=== PATIENT | male | born 1960 | race Caucasian/White ===

== ENCOUNTER 2021-10-07 14:35 | Outpatient (REF) | payer OTHER, SELFPAY ==
[2021-10-07 19:35] LABS: Hemoglobin A1C 5.6 % (<5.7)
[2021-10-07 19:46] LABS: ALT 25 U/L (16-63); AST 22 U/L (15-37); Albumin 3.9 g/dL (3.4-5.0); Alkaline Phosphatase 90 U/L (46-116); Bilirubin, Total 0.3 mg/dL (0.2-1.0); Calculated LDL 104 mg/dL (<100); Cholesterol 178 mg/dL (<200); HDL Cholesterol 59 mg/dL (40-60); Total Protein 8.1 g/dL (6.4-8.2); Triglyceride 77 mg/dL (<150)
[2021-10-07 19:54] LABS: Bilirubin, Direct 0.1 mg/dL (0.0-0.2)
== END 2021-10-07 14:36 | disposition home or self-care (01) ==
LOC: NCHCN 14:35
PROVIDERS: PCP Physician Assistant; Visit Provider Nurse Practitioner Family
DX: I10 Essential (primary) hypertension (principal); F10.10 Alcohol abuse, uncomplicated
CPT/HCPCS: 80061; 80076; 83036

== ENCOUNTER 2022-11-16 19:13 | Outpatient (REF) | payer OTHER, SELFPAY ==
[2022-11-16 19:11] LABS: HCT 38.1 % (40.0-50.0); HGB 13.7 g/dL (13.5-17.5); MCH 33.5 pg (27.0-33.0); MCV 93 fL (80-95); MPV 9.2 fL (8.0-11.0); Platelet Count 304 10^3/uL (130-400); RBC 4.09 10^6/uL (4.36-5.78); RDW 12.2 % (11.8-14.1); RDW-SD 42.1 fL; WBC 9.62 10^3/uL (4.4-10.8)
[2022-11-16 19:30] LABS: AST 26 U/L (15-37); Alkaline Phosphatase 76 U/L (46-116); Anion Gap 9.7 mmol/L (3-11); BUN 9 mg/dL (7-18); Bilirubin, Total 0.5 mg/dL (0.2-1.0); CO2 26.3 mmol/L (21.0-32.0); CREATININE 1.1 mg/dL (0.70-1.30); Calcium 9.3 mg/dL (8.5-10.1); Chloride 94 mmol/L (98-107); Estimated GFR 75.43 (mL/min/1.73m2); Glucose 91 mg/dL (74-106); Potassium 4.2 mmol/L (3.5-5.1); Sodium 130 mmol/L (136-145); Total Protein 8.1 g/dL (6.4-8.2)
[2022-11-16 19:52] LABS: ALT 25 U/L (16-63)
== END 2022-11-16 19:14 | disposition home or self-care (01) ==
LOC: NCHCN 19:13
PROVIDERS: PCP Physician Assistant; Visit Provider Physician Assistant
DX: Z00.00 Encounter for general adult medical examination without abnormal findings (principal); I10 Essential (primary) hypertension; F10.10 Alcohol abuse, uncomplicated
CPT/HCPCS: 80053; 85027

== ENCOUNTER 2024-05-14 12:43 | Outpatient (REF) | payer MEDICAID, SELFPAY ==
[2024-05-14 21:59] LABS: Hemoglobin A1C 5.3 % (<5.7)
[2024-05-14 22:08] LABS: ALT 30 U/L (16-63); AST 27 U/L (15-37); Albumin 4.3 g/dL (3.4-5.0); Alkaline Phosphatase 98 U/L (46-116); Anion Gap 8.3 mmol/L (3-11); BUN 7 mg/dL (7-18); Bilirubin, Total 0.3 mg/dL (0.2-1.0); CO2 27.7 mmol/L (21.0-32.0); Calcium 9.5 mg/dL (8.5-10.1); Calculated LDL 100 mg/dL (<100); Chloride 102 mmol/L (98-107); Cholesterol 192 mg/dL (<200); Estimated GFR 84.05 (mL/min/1.73m2); Glucose 81 mg/dL (74-106); HDL Cholesterol 58 mg/dL (>or=40); Potassium 4.2 mmol/L (3.5-5.1); Sodium 138 mmol/L (136-145); Triglyceride 171 mg/dL (<150)
[2024-05-15 19:34] LABS: Hepatitis C Ab w Rflx HCV PCR Negative (Negative)
[2024-05-15 19:39] LABS: HIV-1/2 Ag & Ab Screen Negative (Negative)
== END 2024-05-14 12:44 | disposition home or self-care (01) ==
LOC: NCHCN 12:43
PROVIDERS: PCP Physician Assistant; Visit Provider Physician Assistant
DX: I10 Essential (primary) hypertension (principal); F10.10 Alcohol abuse, uncomplicated; Z11.4 Encounter for screening for human immunodeficiency virus [HIV]; Z11.59 Encounter for screening for other viral diseases
CPT/HCPCS: 80053; 80061; 86803; 87389; 83036

== ENCOUNTER → 2024-11-04 08:11 | Outpatient (BNVA) | payer MEDICARE, MEDICAID, SELFPAY | PROVIDERS: PCP Physician Assistant; Referring Provider Physician Assistant; Visit Provider Podiatrist | DX: L03.116 Cellulitis of left lower limb (principal); I87.2 Venous insufficiency (chronic) (peripheral); I73.89 Other specified peripheral vascular diseases; L60.2 Onychogryphosis; B35.1 Tinea unguium; Z72.0 Tobacco use; R25.2 Cramp and spasm; R09.89 Other specified symptoms and signs involving the circulatory and respiratory systems; R60.0 Localized edema; L53.8 Other specified erythematous conditions; L65.9 Nonscarring hair loss, unspecified; I83.93 Asymptomatic varicose veins of bilateral lower extremities; R23.8 Other skin changes; L60.8 Other nail disorders | CPT/HCPCS: 99204; 11721; 29580; 93922; 29850 ==

== ENCOUNTER 2024-11-04 11:55 | Outpatient (CLI) | payer MEDICARE, MEDICAID, SELFPAY ==
[2024-11-04 10:24] LABS: Abs Immature Grans 0.03 10^3/uL (0.0-0.06); HCT 44.7 % (40.0-50.0); HGB 15.3 g/dL (13.5-17.5); Immature Grans % 0.4 %; MCH 32.6 pg (27.0-33.0); MCHC 34.2 % (32.0-36.0); MCV 95 fL (80-95); MPV 9.2 fL (8.0-11.0); Platelet Count 303 10^3/uL (130-400); RBC 4.69 10^6/uL (4.36-5.78); RDW 12.7 % (11.8-14.1); RDW-SD 44.7 fL; WBC 8.22 10^3/uL (4.4-10.8)
== END 2024-11-04 11:56 | disposition home or self-care (01) ==
LOC: LBO 11:56
PROVIDERS: PCP Physician Assistant; Visit Provider Podiatrist
DX: L03.90 Cellulitis, unspecified (principal)
CPT/HCPCS: 11721; 29580; 36415; 93922; 29850; 85025

== ENCOUNTER → 2024-11-18 10:04 | Outpatient (BNVA) | payer MEDICARE, MEDICAID, SELFPAY | PROVIDERS: PCP Physician Assistant; Referring Provider Physician Assistant; Visit Provider Podiatrist | DX: L03.116 Cellulitis of left lower limb (principal); I87.2 Venous insufficiency (chronic) (peripheral); I73.89 Other specified peripheral vascular diseases; L60.2 Onychogryphosis; B35.1 Tinea unguium; Z72.0 Tobacco use | CPT/HCPCS: 29580; 29850 ==

== ENCOUNTER → 2024-12-02 10:33 | Outpatient (BNVA) | payer MEDICARE, MEDICAID, SELFPAY | PROVIDERS: PCP Physician Assistant; Referring Provider Physician Assistant; Visit Provider Podiatrist | DX: L03.115 Cellulitis of right lower limb (principal); L03.116 Cellulitis of left lower limb; B35.3 Tinea pedis; I77.6 Arteritis, unspecified; I87.2 Venous insufficiency (chronic) (peripheral); I73.89 Other specified peripheral vascular diseases; L60.2 Onychogryphosis; B35.1 Tinea unguium; Z72.0 Tobacco use | CPT/HCPCS: 99214; 29581 ==

== ENCOUNTER 2024-12-02 12:01 | Outpatient (CLI) | payer MEDICARE, SELFPAY ==
[2024-12-02 12:20] LABS: Abs Immature Grans 0.08 10^3/uL (0.0-0.06); HCT 44.6 % (40.0-50.0); HGB 15.3 g/dL (13.5-17.5); Immature Grans % 0.6 %; MCH 32.3 pg (27.0-33.0); MCHC 34.3 % (32.0-36.0); MCV 94 fL (80-95); MPV 9.1 fL (8.0-11.0); Platelet Count 337 10^3/uL (130-400); RBC 4.73 10^6/uL (4.36-5.78); RDW 12.5 % (11.8-14.1); RDW-SD 43.7 fL; WBC 12.99 10^3/uL (4.4-10.8)
[2024-12-02 12:59] LABS: ALT 23 U/L (16-63); AST 20 U/L (15-37); Albumin 3.7 g/dL (3.4-5.0); Alkaline Phosphatase 139 U/L (46-116); Bilirubin, Direct 0.1 mg/dL (0.0-0.2); Bilirubin, Total 0.4 mg/dL (0.2-1.0); Total Protein 7.7 g/dL (6.4-8.2)
[2024-12-02 13:20] LABS: ALT 22 U/L (16-63); AST 19 U/L (15-37); Albumin 3.8 g/dL (3.4-5.0); Alkaline Phosphatase 139 U/L (46-116); BUN 7 mg/dL (7-18); Bilirubin, Total 0.4 mg/dL (0.2-1.0); Calcium 8.7 mg/dL (8.5-10.1); Chloride 99 mmol/L (98-107); Estimated GFR 83.52 (mL/min/1.73m2); Glucose 101 mg/dL (74-106); Potassium 4.4 mmol/L (3.5-5.1); Sodium 135 mmol/L (136-145); Total Protein 7.7 g/dL (6.4-8.2)
[2024-12-02 13:26] LABS: Anion Gap 10.8 mmol/L (3-11); CO2 25.2 mmol/L (21.0-32.0)
== END 2024-12-02 12:02 | disposition home or self-care (01) ==
LOC: LBO 12:02
PROVIDERS: PCP Physician Assistant; Visit Provider Podiatrist
DX: L03.90 Cellulitis, unspecified (principal); B35.3 Tinea pedis; I77.6 Arteritis, unspecified; I87.2 Venous insufficiency (chronic) (peripheral)
CPT/HCPCS: 29581; 36415; 80053; 80076; 99214; 85025; 93971

== ENCOUNTER 2024-12-02 14:32 | Outpatient (REF) | payer MEDICARE, SELFPAY | END 2024-12-02 14:33 | disposition home or self-care (01) | LOC: LBN 14:32 | PROVIDERS: PCP Physician Assistant; Visit Provider Podiatrist | DX: L97.529 Non-pressure chronic ulcer of other part of left foot with unspecified severity (principal); L03.116 Cellulitis of left lower limb | CPT/HCPCS: 87077; 87070; 87075; 87186; 87205 ==

== ENCOUNTER 2024-12-04 08:59 | Outpatient (CLI) | payer MEDICARE, SELFPAY ==
[2024-12-04 09:34] LABS: ESR 12 mm/hr (0-20)
[2024-12-04 09:35] LABS: Abs Immature Grans 0.06 10^3/uL (0.0-0.06); HCT 41.9 % (40.0-50.0); HGB 14.7 g/dL (13.5-17.5); Immature Grans % 0.4 %; MCH 32.9 pg (27.0-33.0); MCHC 35.1 % (32.0-36.0); MCV 94 fL (80-95); MPV 9.1 fL (8.0-11.0); Platelet Count 303 10^3/uL (130-400); RBC 4.47 10^6/uL (4.36-5.78); RDW 12.4 % (11.8-14.1); RDW-SD 42.9 fL; WBC 14.88 10^3/uL (4.4-10.8)
[2024-12-04 10:09] LABS: C-Reactive Protein 12.18 mg/dL (<or=0.5)
[2024-12-05 17:26] LABS: Myeloperoxidase Ab IgG <0.2 U (>=0.4)
[2024-12-09 20:10] LABS: Cryoglobulin, S Negative %ppt (Negative)
== END 2024-12-04 09:00 | disposition home or self-care (01) ==
LOC: LBO 08:59
PROVIDERS: PCP Physician Assistant; Visit Provider Podiatrist
DX: I77.6 Arteritis, unspecified (principal); L03.90 Cellulitis, unspecified; I87.2 Venous insufficiency (chronic) (peripheral)
CPT/HCPCS: 11042; 11102; 36415; 85652; 99024; 99223; 99232; 99233; 82595; 83516; 85025; 86038; 86140; 86160; 86431

== ENCOUNTER 2024-12-04 10:23 | Inpatient (IN) | payer MEDICARE, SELFPAY ==
[2024-12-04] VITALS (48 sets, daily range): BP systolic 98–176; BP diastolic 56–82; PULSE 69–115; RESP 12–26; TEMP 36.2–37.3; O2SAT 90–100; BMI 27.5
[2024-12-04] MEDS: Lactated Ringers 1,000 ML 1000 ML IV (11:00)
[2024-12-04 11:17] LABS: Abs Immature Grans 0.10 10^3/uL (0.0-0.06); HCT 39.9 % (40.0-50.0); HGB 14.1 g/dL (13.5-17.5); Immature Grans % 0.6 %; MCH 32.5 pg (27.0-33.0); MCHC 35.3 % (32.0-36.0); MCV 92 fL (80-95); MPV 9.0 fL (8.0-11.0); Platelet Count 283 10^3/uL (130-400); RBC 4.34 10^6/uL (4.36-5.78); RDW 12.2 % (11.8-14.1); RDW-SD 41.2 fL; WBC 15.56 10^3/uL (4.4-10.8)
[2024-12-04 11:27] LABS: INR 1.0 (0.9-1.1); Prothrombin Time 10.0 sec (9.1-11.1)
--- NOTE | 2024-12-04 11:33 | W.ED.GENAD ---
Discharge Plan Disposition Patient Disposition: Admit to [facility] Condition: Fair Discharge Details Clinical Impression: Cellulitis of foot, left, PVD (peripheral vascular disease), Venous (peripheral) insufficiency Admit Date/Time: 12/04/24 15:02 Admit Provider: Wayne Kraft Attending Provider: Wayne Kraft Primary Care Provider: Treasure Ocampo ED Provider: Valerie Piper HPI General Mode of arrival: ambulatory. Date/Time Provider Initiated Documentation: 12/04/24 10:41. Limitations to Documentation: no limitations. Information obtained by: patient, family and old records reviewed. HPI Narrative: This is a 64-year-old male patient with a past medical history significant for peripheral vascular disease, hypertension, venous insufficiency, followed by podiatry for a left foot wound that has been worsening over the last 3 months and has been failing outpatient antibiotics for last few days. He is currently on Augmentin and Cipro to cover Pseudomonas and strep species that grew in his cultures. Podiatry saw him today and noticed worsening swelling and redness, with drainage of blood-tinged clear fluid, and dusky appearing spots on the bottom of his foot. He was sent to the emergency department for further evaluation. The patient reports that he has been taking all medications as prescribed, last oral intake 8 PM, states that the foot is slightly painful but not worse than typical. He reports that he has had night sweats and subjective fevers, has been eating and drinking typically for him. He uses Aleve to manage his pain typically. Related Data Home Medications ?Medication ?Instructions ?Recorded ?Confirmed ibuprofen 800 mg tablet 800 mg PO Q8H 10/31/24 12/04/24 amlodipine 10 mg tablet 10 mg PO DAILY 11/04/24 12/04/24 aspirin 81 mg tablet 81 mg PO DAILY 11/04/24 12/04/24 ketoconazole 2 % topical cream See Rx Instructions topical DAILY 11/04/24 12/04/24 #30 grams lisinopril 40 mg tablet 40 mg PO DAILY 11/04/24 12/04/24 omega 1-mnp-dlq-fish oil 60 mg-90 1 cap PO DAILY 11/04/24 12/04/24 mg-500 mg capsule (Fish Oil) amoxicillin 500 mg-potassium 1 tab PO BID 7 days #14 tabs 12/02/24 12/04/24 clavulanate 125 mg tablet (Augmentin) ciprofloxacin HCl 500 mg tablet 500 mg PO BID #14 tabs 12/02/24 12/04/24 terbinafine HCl 250 mg tablet 250 mg PO DAILY 30 days #30 tabs 12/02/24 12/04/24 sodium hypochlorite 0.125 % 1 applic topical DAILY #473 mL 12/03/24 12/04/24 solution (Dakin's Solution) mv,Ca,wxa-ansr-WJ-lycopene 1 tab PO DAILY 12/04/24 12/04/24 Previous Rx's ?Medication ?Instructions ?Recorded ketoconazole 2 % topical cream See Rx Instructions topical DAILY 11/04/24 #30 grams amoxicillin 500 mg-potassium 1 tab PO BID 7 days #14 tabs 12/02/24 clavulanate 125 mg tablet (Augmentin) ciprofloxacin HCl 500 mg tablet 500 mg PO BID #14 tabs 12/02/24 terbinafine HCl 250 mg tablet 250 mg PO DAILY 30 days #30 tabs 12/02/24 sodium hypochlorite 0.125 % 1 applic topical DAILY #473 mL 12/03/24 solution (Dakin's Solution) Allergies Allergy/AdvReac Type Severity Reaction Status Date / Time No Known Allergies Allergy Verified 12/04/24 10:33 General Stated Complaint: Vascular DARCY: 3 Exam Narrative Exam Narrative: Gen: Awake and alert, in no apparent distress HEENT: Non-icteric sclera Neck: Supple Lungs: No apparent respiratory distress, normal respiratory effort. CV: Appears well perfused, heart with regular rate and rhythm, strong distal pulses Abdomen: Non-distended, soft MSK: Moves 4 extremities without apparent limitation in ROM. The patient's left lower extremity as noted below is significantly erythematous, swollen and tender with disclamation of the skin. He does have some dusky appearing areas on the medial/inferior aspect of the foot. He has strong DP pulses compared to the contralateral foot, with preserved movement and sensation distally. Skin: The patient's left flank has an area of red scaly rashes, macular, with no vesicles or petechiae. The patient reports that this has been present since July. Neuro: Normal Gait, no obvious focal deficits or facial asymmetry. Speaks in full, clear sentences. Psych: Appropriate for situation. Course Vital Signs Vital signs: Vital Signs Temperature 37.3 C 12/04/24 10:26 Pulse 110 H 12/04/24 10:26 Respiratory Rate 20 12/04/24 10:26 Blood Pressure 150/72 H 12/04/24 10:26 Pulse Oximetry 98 12/04/24 10:26 Temperature 37.3 C 12/04/24 10:26 Pulse 110 H 12/04/24 10:26 Respiratory Rate 20 12/04/24 10:26 Blood Pressure 150/72 H 12/04/24 10:26 Blood Pressure Position Sitting 12/04/24 10:26 Pulse Oximetry 98 12/04/24 10:26 Oxygen Delivery Method Room Air 12/04/24 10: Oxygen Flow Rate 0 12/04/24 10: Pain Level 4 12/04/24 10:26 Lab/Test Results Lab/Test Results: 12/04/24 11:15 Blood Blood Culture - Pending 12/04/24 11:03 Blood Blood Culture - Pending Laboratory Tests Range/Units 12/04/24 11:03 WBC (4.4-10.8) 10^3/uL 15.56 H RBC (4.36-5.78) 10^6/uL 4.34 L Hgb (13.5-17.5) g/dL 14.1 Hct (40.0-50.0) % 39.9 L MCV (80-95) fL 92 MCH (27.0-33.0) pg 32.5 MCHC (32.0-36.0) % 35.3 RDW (11.8-14.1) % 12.2 Plt Count (130-400) 10^3/uL 283 MPV (8.0-11.0) fL 9.0 Immature Gran % % 0.6 Neutrophils % % 85.7 Lymphocytes % % 4.3 Monocytes % % 8.3 Eosinophils % % 0.5 Basophils % % 0.6 Nucleated RBC % (0.0-0.3) % 0.0 Absolute Neutrophils (1.2-6.7) 10^3/uL 13.33 H Absolute Lymphocytes (1.2-3.4) 10^3/uL 0.67 L Absolute Monocytes (0.1-0.8) 10^3/uL 1.29 H Absolute Eosinophils (0.0-0.7) 10^3/uL 0.08 Absolute Basophils (0.0-0.2) 10^3/uL 0.09 VBG Lactate (<or=2.0) mmol/L 1.3 Medical Decision Making This is a 64-year-old male patient presenting for evaluation of nonhealing left foot infection that has not responded appropriately to outpatient antibiosis. My differential includes but is not limited to cellulitis, abscess, osteomyelitis, certainly considered vascular abnormality including peripheral vascular disease, though have a low concern for arterial occlusion given this patient's preserved pulses and reassuring neurologic examination. I do not note any whole leg swelling to suggest phlegmasia and the patient did have a negative DVT ultrasound within the last few days. I considered sepsis and bacteremia given the patient's tachycardia and obvious source. Will obtain labs to include CBC, CMP, magnesium, troponin, lactate, INR, and I will obtain a CT abdomen pelvis with runoff. - I reviewed the patient laboratory studies, which shows a leukocytosis to 15.5, no anemia or thrombocytopenia. Chemistry panel without significant electrolyte derangements, evidence of kidney or liver dysfunction, and the initial troponin is negative. His lactate is not significantly elevated, nor is his INR. Given the tachycardia and leukocytosis the patient was provided with a liter of IV fluids, and will receive Zosyn as initial antibiosis. I did receive a phone call from the art consultant while the patient was in the emergency department, stating that she would like to take the patient to OR for incision and drainage. The vascular imaging and vascular surgery consult will therefore be done as an inpatient. I did discuss this case with Dr. Kraft with the hospitalist team, who has graciously accepted this patient for admission after the OR for further workup and management of his wound. The patient was taken from the ED to the operating room, remained hemodynamically appropriate while under my care. 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 Pulmonary emphysema (Acute) declines PFTs Harmful pattern of use of alcohol (Acute) PVD (peripheral vascular disease) (Chronic) Hypertension (Chronic) Onychomycosis (Acute) Onychogryphosis (Acute) Other specified peripheral vascular diseases (Acute) Venous (peripheral) insufficiency (Acute) Stasis dermatitis (Acute) Cellulitis (Acute) Tobacco user (Acute) Medical History Toe fracture, right 1st digit Social History Smoking/Tobacco Use Status: Current every day Tobacco Type: cigarettes Smoking packs per day: 1 Smoking cigarettes per day: 20.0 Tobacco: How many years used: 45 Smoking risk assessment performed?: Yes Alcohol Intake: current Drug use: Never
[2024-12-04] MEDS: PIPERACILLIN/TAZO 4.5 GM in Normal Saline 100 ML IVPB ×3 (11:34→22:46)
[2024-12-04 11:36] LABS: ALT 22 U/L (16-63); AST 18 U/L (15-37); Albumin 3.5 g/dL (3.4-5.0); Alkaline Phosphatase 127 U/L (46-116); Anion Gap 11.7 mmol/L (3-11); BUN 8 mg/dL (7-18); Bilirubin, Total 0.6 mg/dL (0.2-1.0); CO2 24.3 mmol/L (21.0-32.0); Calcium 8.5 mg/dL (8.5-10.1); Chloride 96 mmol/L (98-107); Estimated GFR 83.52 (mL/min/1.73m2); Glucose 116 mg/dL (74-106); Magnesium 1.9 mg/dL (1.8-2.4); Potassium 4.3 mmol/L (3.5-5.1); Sodium 132 mmol/L (136-145); Total Protein 7.3 g/dL (6.4-8.2); Troponin I 6 ng/L (<or=76)
--- NOTE | 2024-12-04 12:02 | W.PM.HP.N ---
Date of service: 12/04/24 Time of Service: 12:00 Assessment and Plan Assessment and plan (1) Cellulitis of foot, left: Status: Acute Assessment and plan: Likely secondary to longstanding fungal infection affecting all 10 toes To OR with Dr Steiner this afternoon for debridement Antibiotics changed to vanc & zosyn Monitor CBC (2) PVD (peripheral vascular disease): Status: Chronic Assessment and plan: Aortic runoff CT planned for post-op Likely to need [facility] vascular surgery consult Dr Steiner will advise on intraoperative blood flow to the foot (3) Hypertension: Status: Chronic Assessment and plan: Continue home ACEI, hold home CCB History of Present Illness History of Present Illness Chief Complaint: left foot wounds Narrative: Rk Barlow is a 64 year old man presenting December 04, sent in from podiatry clinic for worsening left foot/ankle wounds, anticipating OR debridement. He failed multiple courses of antibiotics. History taken from the medical record as patient is in the OR. Per the record he has had the foot wounds for 3 months, with intermittent swelling and redness. At December 02 clinic visit he had purulent drainage and a rash all over his body. US VTE negative for thrombus. At December 04 clinic visit, lower leg symptoms had improved but ankle/foot wounds had worsened with increasing purulent drainage. 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 Pulmonary emphysema (Acute) declines PFTs Harmful pattern of use of alcohol (Acute) PVD (peripheral vascular disease) (Chronic) Hypertension (Chronic) Onychomycosis (Acute) Onychogryphosis (Acute) Other specified peripheral vascular diseases (Acute) Venous (peripheral) insufficiency (Acute) Stasis dermatitis (Acute) Cellulitis (Acute) Tobacco user (Acute) Medical History Toe fracture, right 1st digit Social History Smoking/Tobacco Use Status: Current every day Tobacco Type: cigarettes Smoking packs per day: 1 Smoking cigarettes per day: 20.0 Tobacco: How many years used: 45 Smoking risk assessment performed?: Yes Alcohol Intake: current Drug use: Never Housing: house Meds Allergies and Home Medications Allergies Allergy/AdvReac Type Severity Reaction Status Date / Time No Known Allergies Allergy Verified 12/04/24 10:33 Home Medications ?Medication ?Instructions ?Recorded ?Confirmed ?Type ibuprofen 800 mg tablet 800 mg PO Q8H 10/31/24 12/04/24 History amlodipine 10 mg tablet 10 mg PO DAILY 11/04/24 12/04/24 History aspirin 81 mg tablet 81 mg PO DAILY 11/04/24 12/04/24 History ketoconazole 2 % topical cream See Rx Instructions topical DAILY 11/04/24 12/04/24 Rx #30 grams lisinopril 40 mg tablet 40 mg PO DAILY 11/04/24 12/04/24 History omega 4-qds-yiy-fish oil 60 mg-90 1 cap PO DAILY 11/04/24 12/04/24 History mg-500 mg capsule (Fish Oil) amoxicillin 500 mg-potassium 1 tab PO BID 7 days #14 tabs 12/02/24 12/04/24 Rx clavulanate 125 mg tablet (Augmentin) ciprofloxacin HCl 500 mg tablet 500 mg PO BID #14 tabs 12/02/24 12/04/24 Rx terbinafine HCl 250 mg tablet 250 mg PO DAILY 30 days #30 tabs 12/02/24 12/04/24 Rx sodium hypochlorite 0.125 % 1 applic topical DAILY #473 mL 12/03/24 12/04/24 Rx solution (Dakin's Solution) mv,Ca,dlp-kpzj-SE-lycopene 1 tab PO DAILY 12/04/24 12/04/24 History Exam Narrative Exam Narrative: General: This is a pleasant man in no distress HEENT: Normocephalic, atraumatic CV: RRR Resp: CTAB Abd: soft, NTND MSK: voluntary motion x4 Skin: Left ankles and foot erythematous and edematous with weeping wounds. BLE rash. Severe nail fungus in all 10 toes. Neuro: awake, alert, no focal deficits Results Labs 12/04/24 11:03 12/04/24 11:03 Labs: Laboratory Results - last 24 hr 12/04/24 11:03 WBC 15.56 H RBC 4.34 L Hgb 14.1 Hct 39.9 L MCV 92 MCH 32.5 MCHC 35.3 RDW 12.2 Plt Count 283 MPV 9.0 Immature Gran % 0.6 Neutrophils % 85.7 Lymphocytes % 4.3 Monocytes % 8.3 Eosinophils % 0.5 Basophils % 0.6 Nucleated RBC % 0.0 Absolute Neutrophils 13.33 H Absolute Lymphocytes 0.67 L Absolute Monocytes 1.29 H Absolute Eosinophils 0.08 Absolute Basophils 0.09 PT 10.0 INR 1.0 VBG Lactate 1.3 Sodium 132 L Potassium 4.3 Chloride 96 L Carbon Dioxide 24.3 Anion Gap 11.7 H BUN 8 Creatinine 1.0 Est GFR (CKD-EPI 2020) 83.52 Glucose 116 H Calcium 8.5 Magnesium 1.9 Total Bilirubin 0.6 AST 18 ALT 22 Alkaline Phosphatase 127 H Troponin I 6 Total Protein 7.3 Albumin 3.5 Last Vital Signs Temp 37.3 C 12/04/24 10:26 Pulse 110 H 12/04/24 10:26 Resp 20 12/04/24 10:26 BP 150/72 H 12/04/24 10:26 Pulse Ox 98 12/04/24 10:26 Time Spent Time spent with Patient: 40-54 minutes Time was spent: preparing to see the patient(eg.review tests), obtaining and/or reviewing separately otained hiistory, ordering medications,tests, procedures, referring, communicating with other health palliative care nurse, indepentently interpreting results, counseling the patient and care coordination
--- NOTE | 2024-12-04 12:26 | W.ANESPRE ---
General Info Date of Service Date Performed: 12/04/24 Height: 6 ft 3 in Weight: 99.79 kg Body Mass Index (BMI): 27.5 Surgical Procedure: Operation Date: 12/04/24 13:10 Proposed Procedure Side Surgeon p I&D Foot Left Moon Murrell DPM Meds Allergies and Home Medications Allergies Allergy/AdvReac Type Severity Reaction Status Date / Time No Known Allergies Allergy Verified 12/04/24 10:33 Home Medication ?Medication ?Instructions ?Recorded ibuprofen 800 mg tablet 800 mg PO Q8H 10/31/24 amlodipine 10 mg tablet 10 mg PO DAILY 11/04/24 aspirin 81 mg tablet 81 mg PO DAILY 11/04/24 ketoconazole 2 % topical cream See Rx Instructions topical DAILY 11/04/24 #30 grams lisinopril 40 mg tablet 40 mg PO DAILY 11/04/24 omega 7-swh-dcv-fish oil 60 mg-90 1 cap PO DAILY 11/04/24 mg-500 mg capsule (Fish Oil) amoxicillin 500 mg-potassium 1 tab PO BID 7 days #14 tabs 12/02/24 clavulanate 125 mg tablet (Augmentin) ciprofloxacin HCl 500 mg tablet 500 mg PO BID #14 tabs 12/02/24 terbinafine HCl 250 mg tablet 250 mg PO DAILY 30 days #30 tabs 12/02/24 sodium hypochlorite 0.125 % 1 applic topical DAILY #473 mL 12/03/24 solution (Dakin's Solution) mv,Ca,kur-ikbi-GZ-lycopene 1 tab PO DAILY 12/04/24 Current Visit Medications: Current Medications Generic Name Dose Route Start Last Admin Trade Name Emory PRN Reason Stop Dose Admin Amlodipine Besylate 10 mg 12/05/24 08:30 Amlodipine 10 Mg Tab PO DAILY [facility] Aspirin 81 mg 12/05/24 08:30 Aspirin 81 Mg Chew PO DAILY [facility] Fish Oil 1,000 mg 12/05/24 08:30 Seneca-3 Fatty Acids 1000 Mg Cap PO DAILY [facility] Piperacillin Sod/Tazobactam 100 mls @ 200 mls/hr 12/04/24 17:00 Sod 4.5 gm/ Sodium Chloride IVPB Q6H [facility] Vancomycin/PEG/NADA/Lysine/Water 2 gm in 400 mls @ 200 mls/hr 12/04/24 12:30 Vancocin Injection IVPB 12/04/24 14:29 NOW ONE Vancomycin/PEG/NADA/Lysine/Water 1 gm in 200 mls @ 133.333 mls/hr 12/05/24 02:00 Vancocin Injection IVPB Q12H [facility] IV Miscellaneous Supplies 1 each 12/04/24 10:45 Iv Access IV DIRECTED [facility] IV Miscellaneous Supplies 1 each 12/04/24 12:00 Iv Access IV DIRECTED [facility] Lisinopril 40 mg 12/05/24 08:30 Lisinopril 10 Mg Tab PO DAILY [facility] Non-Formulary Medication 1 tab 12/05/24 08:30 Mv,Ca,Poz-Clqm-Wt-Lycopene PO DAILY [facility] Polyethylene Glycol 17 gm 12/04/24 11:52 Polyethylene Glycol 3350 17 Gm Packet PO DAILY PRN PRN Constipation Sodium Chloride 0 ml 12/04/24 10:42 Normal Saline Flush 10 Ml Syr IVP PRN PRN Sodium Chloride 0 ml 12/04/24 20:00 Normal Saline Flush 10 Ml Syr IVP BID [facility] Sodium Chloride 0 ml 12/04/24 10:42 Normal Saline 10 Ml Vial IJ DIRECTED PRN Sodium Chloride 0 ml 12/04/24 11:52 Normal Saline Flush 10 Ml Syr IVP PRN PRN Sodium Chloride 0 ml 12/04/24 20:00 Normal Saline Flush 10 Ml Syr IVP BID [facility] Sodium Chloride 0 ml 12/04/24 11:52 Normal Saline 10 Ml Vial IJ DIRECTED PRN PFSH Active Problems Active Problems: Problem Status Onset Code Vasculitis Acute I77.6 Tinea pedis Acute B35.3 Coronary arteriosclerosis Acute I25.10 Hyponatremia Acute E87.1 Mass of right adrenal gland Acute E27.8 Pulmonary emphysema Acute J43.9 Harmful pattern of use of alcohol Acute F10.10 PVD (peripheral vascular disease) Chronic I73.9 Hypertension Chronic I10 Onychomycosis Acute B35.1 Onychogryphosis Acute L60.2 Other specified peripheral vascular diseases Acute I73.89 Venous (peripheral) insufficiency Acute I87.2 Stasis dermatitis Acute I87.2 Cellulitis Acute L03.90 Tobacco user Acute Z72.0 Medical History Medical History Toe fracture, right 1st digit Tobacco Smoking/Tobacco Use Status: Current every day Tobacco Type: cigarettes Smoking packs per day: 1 Smoking cigarettes per day: 20.0 Alcohol Alcohol Intake: current Substance Use Substance use: Never Vital Signs and Lab Results Vital Signs Most Recent Vital Signs in EMR: Most Recent Vital Signs Temp Pulse Resp BP Pulse Ox 37.3 C 110 H 20 150/72 H 98 12/04/24 10:26 12/04/24 10:26 12/04/24 10:26 12/04/24 10:12/04/24 10: Lab Results 12/04/24 11:12/04/24 11:03 Complete Blood Count: WBC, (4.4-10.8) 15.56 10^3/uL H Today, 11:03 RBC, (4.36-5.78) 4.34 10^6/uL L Today, 11:03 Hgb, (13.5-17.5) 14.1 g/dL Today, 11:03 Hct, (40.0-50.0) 39.9 % L Today, 11:03 Plt Count, (130-400) 283 10^3/uL Today, 11:03 VBG Lactate, (<or=2.0) 1.3 mmol/L Today, 11:03 Complete Metabolic Panel: Sodium, (136-145) 132 mmol/L L Today, 11:03 Potassium, (3.5-5.1) 4.3 mmol/L Today, 11:03 Chloride, (98-107) 96 mmol/L L Today, 11:03 Carbon Dioxide, (21.0-32.0) 24.3 mmol/L Today, 11:03 BUN, (7-18) 8 mg/dL Today, 11:03 Creatinine, (0.70-1.30) 1.0 mg/dL Today, 11:03 Est GFR (CKD-EPI 2020), (mL/min/1.73m2) 83.52 Today, 11:03 Magnesium, (1.8-2.4) 1.9 mg/dL Today, 11:03 Calcium, (8.5-10.1) 8.5 mg/dL Today, 11:03 Albumin, (3.4-5.0) 3.5 g/dL Today, 11:03 Glucose, (74-106) 116 mg/dL H Today, 11:03 C-Reactive Protein, (<or=0.5) 12.18 mg/dL H Today, 09:15 Liver Function Panel: ALT, (16-63) 22 U/L Today, 11:03 AST, (15-37) 18 U/L Today, 11:03 Coagulation Panel: INR, (0.9-1.1) 1.0 Today, 11:03 PT, (9.1-11.1) 10.0 sec Today, 11:03 Cardiac Panel: Troponin I, (<or=76) 6 ng/L Today Anesthesia Assessment and Plan Anesthesia History Personal History: No History of Anesthesia Complications Family History: No Family History of Anesthesia Complications Exercise Tolerance Exercise Tolerance: Metabolic Equivalents>4 Pertinent Negatives Pertinent Negatives: No Symptoms of GERD Cardiac & Pulmonary Exam Cardiac Exam: Normal S1/S2 Heart Sounds Pulmonary Exam: Clear Bilateral Breath Sounds Implantable Cardiac Device Does patient have a Pacemaker or an ICD?: No Airway Exam Known Difficult Airway: No Mallampati Class: 2 Mouth Opening: Normal (> 3cm) Thyromental Distance: Greater than 3 cm Facial Hair: Full Ordonez Neck Range of Motion: Full ROM Neck Circumference: Normal Teeth Condition: Generalized Poor Dentition ASA Classification ASA Score: ASA 2 Emergency Case?: No NPO Status NPO Status: NPO Clears >2 hours, Solids >8 hours (3 drops of milk in coffee at 0930) Anesthesia Plan Resuscitation Status: Full Code Anesthesia Technique: General Anesthesia Airway Planned: Natural Airway Monitors Used: Standard Monitors Preoperative Comments:: Pt. denies any knowledge of adrenal mass or CAD, no current cardiac symptoms.
[2024-12-04] MEDS: HYDROmorphone 2 MG/ML SYR 0.5 MG IVP (12:58)
[2024-12-04] MEDS: Lactated Ringers 1,000 ML 30 ML IV (13:34)
[2024-12-04 13:47] LABS: Vancomycin, Random < 0.8 ug/mL
[2024-12-04 13:50] LABS: Troponin I 6 ng/L (<or=76)
[2024-12-04] MEDS: VANCOMYCIN/WATER (PEG) 2 GM/400 ML BAG IVPB (14:04)
--- NOTE | 2024-12-04 14:28 | SKI_PTH ---
PATIENT: Rk Barlow JR LOC: U#:[id number] AGE/SX: 64/M ROOM: 228 RE12/04/[address]: Wayne Kraft : 1960 BED: A DIS: 12/09/2024 SPEC #: [id number] RECD: 12/04/24 18:08 STATUS: ALLEGRA REShoaib #: [id number] DENISE: 12/04/24 14:[address]: Wayne Kraft DEPT: Surgical Specimen RECD BY: Alba Narvaez ENTERED: 12/04/24 18:10 SP TYPE: DARLYN GREENBERG DR: Manuel Cueva Kelsey Sara Zaidi, DPM [facility] Tissues: 1 - SKIN BIOPSY(SHAVE/PUNCH) 2 - SKIN BIOPSY(SHAVE/PUNCH) Procedures: SKIN LEVEL 4 SPECIAL STAIN 1 Comments: [id number]
[2024-12-04] MEDS: Cellulose,Oxidized 4X8 1 PACKET MC (14:32)
--- NOTE | 2024-12-04 14:43 | PDOC.CMIN ---
Date of service: 12/05/24 Time of Service: 09:50 Care Management Initial Assmt Initial Assessment Reason for Hospitalization: cellulitis of left foot requiring surgical intervention Functional Status/Living Situation Patient Presentation: Rk was seen by podiatry yesterday for a left foot wound that has been worsening and he was sent to the ED. He had been on antibiotics, but still the infection worsened. He was taken to the OR for I&D. Bill was lying in bed when CM met with him. He slept late into the day. He immediately sat up to speak with CM, and was very pleasant. 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 Bill is having a fair amount of pain to that left foot, but he stated that it is handled pretty well by Tylenol alternating with tramadol. He will be returning to the OR on 12/08 for closure of that wound. For now, Bill is non-wieght bearing on his left foot. He is using a walker and hopping around. He is unsure how that would work at home, as the house is 2 stories. He can sleep on the first floor couch, but not the best for comfort. Bill would be willing to go to SNF if needed, but he would much prefer to go home. No referrals will be sent today, he prefers to wait until after the surgery for wound closure. Bill stated that Rosibel has been doing his dressing changes, and she would continue to do so if needed. He would be open to if needed as well. Town of Residence: [place] Resides with: Other (partner, Rosibel) Significant Other/Family: Local (2 daughters, only in touch with one) Natural Supports: Rosibel Employment Status: Retired Instrumental Activities of Daily Living (ADLs): Independent Medications Medication Management: No Issues/Barriers identified Physical Functioning/Mobility Assistive Device: FWW Advance Directives Advance Directives: Do you have an Advance Directive: N 02/15/16, 11:53 AD On File at [facility]: N 02/15/16, 11:53 Date Asked 12/04/24 12/04/24, 10:39 AD Date Reviewed COLST On File at [facility] COLST Date Scanned Code Status Resuscitation Status Full Code Insurance Coverage/Financial Issues Insurance: Medicare Part A & B Care Team Visit Care Team Role Provider Type Treasure Ocampo Primary Care Provider NON-[facility] STAFF PHYSICIAN InPatient Jason Desouza Other Providers OTHER Manuel Cueva DPM Other Providers [facility] STAFF PHYSICIAN Valerie Piper MD Emergency Provider [facility] STAFF PHYSICIAN Moon Murrell DPM Attending Provider PIYUSH [facility] STAFF PHYSICIAN Other Providers Discharge Potential Discharge Needs: PT Evaluation, PCP F/U Appt and Surgical F/U Appt (podiatry) Anticipated Barriers to Discharge: None Identified Patient/Family Education Needs: Review discharge instructions, discuss Ask Me Three Transportation: Private vehicle Plan: Bill will likely discharge home once he is medically stable. He may need HH for wound care. 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 Bill will transport home in a private vehicle. CM will continue to follow and update the plan as needed. 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 Pulmonary emphysema (Acute) declines PFTs Harmful pattern of use of alcohol (Acute) PVD (peripheral vascular disease) (Chronic) Hypertension (Chronic) Onychomycosis (Acute) Onychogryphosis (Acute) Other specified peripheral vascular diseases (Acute) Venous (peripheral) insufficiency (Acute) Stasis dermatitis (Acute) Cellulitis (Acute) Tobacco user (Acute) Medical History Toe fracture, right 1st digit Social History Smoking/Tobacco Use Status: Current every day Tobacco Type: cigarettes Smoking packs per day: 1 Smoking cigarettes per day: 20.0 Tobacco: How many years used: 45 Smoking risk assessment performed?: Yes Alcohol Intake: current Drug use: Never Housing: house
[2024-12-04] MEDS: fentaNYL 100 MCG/2 ML VIAL IVP ×2 (15:22→15:28)
--- NOTE | 2024-12-04 16:05 | W.ANESPOSTOP ---
Postoperative Evaluation Date, Time and Location Date Performed: 12/04/24 Time Performed: 15:27 Patient Location: PACU Vital Signs Most Recent Imported Vital Signs: Most Recent Vital Signs Temp Pulse Resp BP Pulse Ox 37.0 C 78 15 118/82 97 12/04/24 15:27 12/04/24 15:27 12/04/24 15:27 12/04/24 15:27 12/04/24 15:27 Pain Score Most Recent Pain Score: Most Recent Pain Score Pain Level 4 12/04/24 15:27 Assessment Mental Status: Awake (Alert & Oriented to Patient Baseline) Airway and Respiratory Function: Patent airway with normal (patient baseline) respiratory exam Cardiovascular Function: Hemodynamically Stable Hydration Status: Adequately Hydrated Nausea & Vomiting: No Nausea or Vomiting Pain: Pain is tolerable per patient Peripheral Nerve Block: Patient did not receive a nerve block
--- NOTE | 2024-12-04 16:18 | POCOE_ITS ---
Date of service: 12/04/24 Time of Service: 13:30 Assessment and Plan Assessment and plan (1) Cellulitis of foot, left: Status: Acute (2) Vasculitis: Status: Acute (3) Tinea pedis: Status: Acute (4) PVD (peripheral vascular disease): Status: Chronic (5) Venous (peripheral) insufficiency: Status: Acute (6) Stasis dermatitis: Status: Acute (7) Cellulitis: Status: Acute Assessment and plan: Patient was seen in preop holding. I recommended OR incision and debridement of the left foot and ankle for exploratory and treatment purposes since hide has failed multiple rounds of antibiotics, compression therapy. Cultures were reviewed. Patient has been on antibiotics and we will continue. Patient consented to the procedure. I discussed all the risks, benefits and possible complications of the procedure in detail with the patient including but not limited to pain, nerve pain, CRPS, bleeding, hematoma, seroma, delayed healing, nonhealing, need for further surgery or amputation, DVT, PE, stroke, MT or with anesthesia. Patient has been n.p.o. with his last meal being 8 PM last night. No contraindications to the procedure. History of Present Illness Narrative: Patient consulted for left lower extremity cellulitis. Patient is familiar to our practice. He has been under care with podiatry at an [facility] since 11/04/2024. Patient has initially presented with left lower extremity cellulitis and small wounds which she had taken antibiotics for. He stated that these foot wounds have been present for about 3 months now with off-and-on swelling and redness. He was seen in clinic with redness, swelling, small shallow wounds to the left lower extremity. He was seen in clinic on 12/02/2024 with worsening redness, swelling, heavy green drainage from the wounds as well as a rash extending to bilateral lower extremity as well as his upper body. Labs were ordered taken and reviewed. DVT duplex was reviewed and negative for for DVT at that time. Patient was prescribed ciprofloxacin and Augmentin however, upon follow-up today in office there was noted to be less erythema, edema to the left calf however increase in redness swelling drainage from the left foot. Patient was sent to the ER for admit and emergent OR I&D for hemorrhagic tissue noted to the plantar foot. 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 Pulmonary emphysema (Acute) declines PFTs Harmful pattern of use of alcohol (Acute) PVD (peripheral vascular disease) (Chronic) Hypertension (Chronic) Onychomycosis (Acute) Onychogryphosis (Acute) Other specified peripheral vascular diseases (Acute) Venous (peripheral) insufficiency (Acute) Stasis dermatitis (Acute) Cellulitis (Acute) Tobacco user (Acute) Medical History Toe fracture, right 1st digit Social History Smoking/Tobacco Use Status: Current every day Tobacco Type: cigarettes Smoking packs per day: 1 Smoking cigarettes per day: 20.0 Tobacco: How many years used: 45 Smoking risk assessment performed?: Yes Alcohol Intake: current Drug use: Never Exam Extrem Other: Vascular: DP to the left is palpable 1/4, remainder of the pulses are nonpalpable bilaterally.. There is edema noted bilaterally left foot worse than right. Skin changes consistent with venous insufficiency bilaterally left worse than right. Venous ulcers to the left lower extremity. Decreased erythema, edema and warmth to the left lower extremity. Capillary fill time is delayed to distal digits bilaterally. Skin temperature is warm to warm bilateral lower extremity. Varicosities and telangiectasias noted bilaterally. Hair growth absent bilaterally. MSK: Muscle strength is within normal limits and symmetrical to bilateral lower extremity. Ankle alignment is normal and ROM is normal and pain-free. Subtalar joint ROM is normal. Mid-tarsal joint ROM is normal. Metatarsophalangeal joint ROM is normal and pain free bilaterally. Hallux in good alignment and pain-free bilateral. The digits of b/l feet are in normal alignment. There is no pain on palpation to b/l heels. There is normal gait noted Derm: Erythema, edema, warmth noted to the left lower extremity noted to be resolving to the calf. Shallow venous ulcers noted to medial and lateral ankle to the left. Increased erythema, edema, warmth, drainage to the left foot today, there is some hemorrhagic thrombotic tissue noted to the plantar medial surface laterally, severe interdigital maceration noted to the left toes, serous/green drainage noted, no crepitus no bogginess no fluctuance, there is malodor noted Rash noted bilaterally, left lower extremity worse and more coalescent than right appears improved to the left. Nails x 10 are severely elongated, gryphotic, thickened, discolored, with heavy subungual debris and pain, nails are growing in an upward fashion at around a 60 to 70 degree angle. No open venous ulcers at this time. Results Last Vital Signs Temp 98.6 F 12/04/24 15:27 Pulse 78 12/04/24 15:27 Resp 15 12/04/24 15:27 BP 118/82 12/04/24 15:27 Pulse Ox 97 12/04/24 15:27 Labs 12/04/24 11:03 12/04/24 11:03 Labs: Laboratory Results - last 24 hr 12/04/24 12/04/24 11:03 13:27 WBC 15.56 H RBC 4.34 L Hgb 14.1 Hct 39.9 L MCV 92 MCH 32.5 MCHC 35.3 RDW 12.2 Plt Count 283 MPV 9.0 Immature Gran % 0.6 Neutrophils % 85.7 Lymphocytes % 4.3 Monocytes % 8.3 Eosinophils % 0.5 Basophils % 0.6 Nucleated RBC % 0.0 Absolute Neutrophils 13.33 H Absolute Lymphocytes 0.67 L Absolute Monocytes 1.29 H Absolute Eosinophils 0.08 Absolute Basophils 0.09 PT 10.0 INR 1.0 VBG Lactate 1.3 Sodium 132 L Potassium 4.3 Chloride 96 L Carbon Dioxide 24.3 Anion Gap 11.7 H BUN 8 Creatinine 1.0 Est GFR (CKD-EPI 2020) 83.52 Glucose 116 H Calcium 8.5 Magnesium 1.9 Total Bilirubin 0.6 AST 18 ALT 22 Alkaline Phosphatase 127 H Troponin I 6 6 Total Protein 7.3 Albumin 3.5 Random Vancomycin < 0.8
--- NOTE | 2024-12-04 16:25 | W.PM.OP ---
Operative Note Operative Note PRE-OP DIAGNOSIS: Cellulitis/abscess, left foot and ankle POST-OP DIAGNOSIS: other (Cellulitis left ankle) PROCEDURE: Incision and debridement left foot and ankle ulcers SURGEON: Moon Mrurell ANESTHESIA TYPE: Local By Surgeon (8 mL 1% lidocaine plain) Refer to Anesthesia Record ESTIMATED BLOOD LOSS: 200 PATHOLOGY: none sent (1. Soft tissue biopsy, left foot #2 shave biopsy, left foot) COMPLICATIONS: None Patient was transported to: PACU Patient's condition: stable Indications: This is a 64-year-old male patient with recurrent, recalcitrant and worsening cellulitis to the left lower extremity. Patient has failed antibiotics. There was evidence for some blue-black thrombotic tissue to the plantar lateral aspect of the left foot concerning for necrotizing infection. Patient was sent to the ER. Labs were ordered. Decision was made for OR exploratory I&D to the left foot. I discussed the risks, benefits and possible complications of the procedure in detail with the patient. No contraindications were noted to the procedure at this time. Findings: Very small amount of necrotic, hemorrhagic tissue noted to the plantar lateral aspect of the left foot. The left foot was explored at the dorsal lateral aspect of the left foot, lateral aspect of the left foot as well as medial aspect of the left foot at the areas of most erythema, blue-black discoloration. Healthy tissue was noted throughout all the incision site, healthy bleeding was noted throughout the incision sites except for the plantar lateral aspect of the left foot. Very small amount of hemorrhagic necrotic tissue was noted. This was sent to pathology. Procedure Description: Patient was brought to the operating room placed in supine position with the anesthesia team. After induction of general anesthesia local analgesia was obtained using approximately 8 mL of lidocaine plain preoperatively. An incision was made to the plantar lateral aspect of the left foot directly overlying the blue-black discoloration concerning for infectious necrosis. The incision was deepened through the skin and subcutaneous tissue, healthy plantar fat pad was noted the incision was deepened further, small amount of necrotic/thrombotic tissue was noted around the fifth metatarsal neck area, no abscess was noted. Next, attention was directed to the lateral aspect of the left foot where approximately 3 to 4 cm linear longitudinal incision was made just proximal to the base of the fifth metatarsal this was deepened and explored, healthy, yellow tissue was noted without any necrosis. Attention was then directed to the dorsal lateral aspect of the left foot around the base of the 3rd and 4th metatarsals where there was blue-black discoloration, the incision was deepened with a sterile #15 blade healthy tissue was noted, healthy bleeding was noted. Attention was then directed to the plantar medial aspect of the left foot and incision was made around the plantar sulcus and this was deepened through the skin and subcutaneous tissue healthy tissue was noted no evidence for an abscess no purulence was noted. Next, the incision sites were cauterized and ligated as needed. The dorsal medial and dorsal lateral incisions were reapproximated using 3-0 Prolene. Surgicel was applied to the plantar incision for the bleeding. This was then removed. The plantar incision was reapproximated with 2 sutures to help keep the skin edges reapproximated as much as possible to prevent skin contractures, however this area was packed with Dakin's soaked packing gauze. Dressings were then applied with Dakin soaked 4 x 4 gauze interdigitally. Dakin soaked gauze was applied to the remainder of the incision site as well, followed by 4 x 4 gauze, Kerlix. Coban was applied for compression. Patient is to keep his dressings clean, dry and intact. He is to keep his left lower extremity elevated at all times. I recommend continued antibiotics. Will return to the OR if indicated Date of Procedure: 12/04/24
--- NOTE | 2024-12-04 16:44 | W.PC.ACHO ---
Registration Status: ADM IN Primary Language: Preferred Language: ED Information & Data Chief Complaint Vascular 12/04/24 11:33 Triage Note patient having 3 months of 12/04/24 10:26 ongoing infection in left foot, has been being treated with abx from podiatry. foot is currently wrapped. Patient reports green drainage and 3 black spots on the bottom of the foot. affected area from the ankle and the whole foot. Patient states the swelling from the calf has improved. patient states the right foot has become affected but not as bad. Medical / Surgical History (Last Reviewed 12/04/24 @ 16:21 by Moon Murrell DPM) Toe fracture, right Most Recent Vital Signs Temperature 36.2 C L 12/04/24 16:20 Pulse 80 12/04/24 16:20 Pulse Rhythm Regular 12/04/24 16:20 Pulse 75 12/04/24 15:27 Respiratory Rate 16 12/04/24 16:20 Respiratory Effort Normal, Non-Labored 12/04/24 16:20 Respiratory Depth Normal 12/04/24 16:20 Respiratory Pattern Normal 12/04/24 16:20 Blood Pressure 131/70 12/04/24 16:20 Blood Pressure Mean 92 12/04/24 15:27 Blood Pressure Position Sitting 12/04/24 10:26 Pulse Oximetry 98 12/04/24 16:20 Respiratory End-tidal CO2 20 12/04/24 15:27 Oxygen Delivery Method Room Air 12/04/24 16:20 Oxygen Flow Rate 0 12/04/24 16:20 Pain Level 4 12/04/24 15:27 Allergies No Known Allergies Allergy (Verified 12/04/24 10:33) Precautions Isolation Standard precaution 12/04/24 10:32 Active Medications Generic Name Dose Route Start Last Admin Trade Name Freq PRN Reason Stop Dose Admin Fentanyl 0 mcg 12/04/24 14:14 12/04/24 15:28 Fentanyl 100 Mcg/2 Ml Vial IVP 01/03/25 14:13 25 mcg DIRECTED PRN Administration Ringer's Solution 1,000 mls @ 30 mls/hr 12/04/24 14:15 12/04/24 13:34 IV 01/03/25 14:14 30 mls/hr INFUSION LALIT Administration Sodium Hypochlorite 473 ml 12/04/24 15:00 12/04/24 14:43 Dakin's Solution 0.25% 473 Ml Btl TP 01/03/25 14:59 398 ml DIRECTED LALIT Administration IV IV Catheter Type [Right Saline Lock Antecubital] IV Catheter Gauge [Right 18 Antecubital] Diet Orders Category Date Time Status Regular/Normal [DIET] Nutrition 12/04/24 Dinner Active Diagnostics 12/04/24 12/04/24 12/04/24 Range/Units 16:30 13:43 13:27 WBC (4.4-10.8) 10^3/uL RBC (4.36-5.78) 10^6/uL Hgb (13.5-17.5) g/dL Hct (40.0-50.0) % MCV (80-95) fL MCH (27.0-33.0) pg MCHC (32.0-36.0) % RDW (11.8-14.1) % Plt Count (130-400) 10^3/uL MPV (8.0-11.0) fL Immature Gran % % Neutrophils % % Lymphocytes % % Monocytes % % Eosinophils % % Basophils % % Nucleated RBC % (0.0-0.3) % Absolute Neutrophils (1.2-6.7) 10^3/uL Absolute Lymphocytes (1.2-3.4) 10^3/uL Absolute Monocytes (0.1-0.8) 10^3/uL Absolute Eosinophils (0.0-0.7) 10^3/uL Absolute Basophils (0.0-0.2) 10^3/uL PT (9.1-11.1) sec INR (0.9-1.1) VBG Lactate (<or=2.0) mmol/L Sodium (136-145) mmol/L Potassium (3.5-5.1) mmol/L Chloride (98-107) mmol/L Carbon Dioxide (21.0-32.0) mmol/L Anion Gap (3-11) mmol/L BUN (7-18) mg/dL Creatinine (0.70-1.30) mg/dL Est GFR (CKD-EPI 2020) (mL/min/1.73m2) Glucose (74-106) mg/dL Calcium (8.5-10.1) mg/dL Magnesium (1.8-2.4) mg/dL Total Bilirubin (0.2-1.0) mg/dL AST (15-37) U/L ALT (16-63) U/L Alkaline Phosphatase (46-116) U/L Troponin I Pending 6 (<or=76) ng/L Total Protein (6.4-8.2) g/dL Albumin (3.4-5.0) g/dL Random Vancomycin Pending < 0.8 ug/mL 12/04/24 Range/Units 11:03 WBC 15.56 H (4.4-10.8) 10^3/uL RBC 4.34 L (4.36-5.78) 10^6/uL Hgb 14.1 (13.5-17.5) g/dL Hct 39.9 L (40.0-50.0) % MCV 92 (80-95) fL MCH 32.5 (27.0-33.0) pg MCHC 35.3 (32.0-36.0) % RDW 12.2 (11.8-14.1) % Plt Count 283 (130-400) 10^3/uL MPV 9.0 (8.0-11.0) fL Immature Gran % 0.6 % Neutrophils % 85.7 % Lymphocytes % 4.3 % Monocytes % 8.3 % Eosinophils % 0.5 % Basophils % 0.6 % Nucleated RBC % 0.0 (0.0-0.3) % Absolute Neutrophils 13.33 H (1.2-6.7) 10^3/uL Absolute Lymphocytes 0.67 L (1.2-3.4) 10^3/uL Absolute Monocytes 1.29 H (0.1-0.8) 10^3/uL Absolute Eosinophils 0.08 (0.0-0.7) 10^3/uL Absolute Basophils 0.09 (0.0-0.2) 10^3/uL PT 10.0 (9.1-11.1) sec INR 1.0 (0.9-1.1) VBG Lactate 1.3 (<or=2.0) mmol/L Sodium 132 L (136-145) mmol/L Potassium 4.3 (3.5-5.1) mmol/L Chloride 96 L (98-107) mmol/L Carbon Dioxide 24.3 (21.0-32.0) mmol/L Anion Gap 11.7 H (3-11) mmol/L BUN 8 (7-18) mg/dL Creatinine 1.0 (0.70-1.30) mg/dL Est GFR (CKD-EPI 2020) 83.52 (mL/min/1.73m2) Glucose 116 H (74-106) mg/dL Calcium 8.5 (8.5-10.1) mg/dL Magnesium 1.9 (1.8-2.4) mg/dL Total Bilirubin 0.6 (0.2-1.0) mg/dL AST 18 (15-37) U/L ALT 22 (16-63) U/L Alkaline Phosphatase 127 H (46-116) U/L Troponin I 6 (<or=76) ng/L Total Protein 7.3 (6.4-8.2) g/dL Albumin 3.5 (3.4-5.0) g/dL Random Vancomycin ug/mL 12/04/24 14:28 Surgical Culture - Pending Foot - Left Gram Stain - Final 12/04/24 14:28 Anaerobic Culture - Pending Foot - Left 12/04/24 11:15 Blood Culture - Pending Blood 12/04/24 11:03 Blood Culture - Pending Blood Intake and Output - 24 Hour Total 12/04/24 10:23 thru 12/04/24 16:38 Intake Total 110 Balance 110 Weight 99.79 kg Intake: IV 110 Other: Urine Appearance Clear Emesis Description None Falls Risk Assessment History of Falls No History 12/04/24 16:20 Contributing Factors Impairments,Medications 12/04/24 16:20 Ambulatory Aids Uses ambulatory device 12/04/24 16:20 Tubes/Lines W/no contributing factors 12/04/24 16:20 Gait Evaluation W/no contributing factors 12/04/24 16:20 Cognition No cognitive impairment 12/04/24 16:20 Fall Total Score 41 12/04/24 16:20 Level of Risk Moderate Risk 12/04/24 16:20 Problems (Last Reviewed 12/04/24 @ 16:21 by Moon Murrell DPM) Cellulitis of foot, left (Acute) Vasculitis (Acute) Tinea pedis (Acute) PVD (peripheral vascular disease) (Chronic) Venous (peripheral) insufficiency (Acute) Stasis dermatitis (Acute) Cellulitis (Acute) v v v v v v v v v Sending and/or Receiving Nurses: Please use comment section below to note any information pertinent to the patient hand-off not included above. Information / Comments: Pt running vanc and LR at handoff. OR reports zeroform, kerlix, coban for wound. Report received from:Dina Mayo STEREO MAP PLOTTER OPERATOR at pt bedside.
[2024-12-04 17:07] LABS: Vancomycin, Random 39.2 ug/mL
[2024-12-04 17:09] LABS: Troponin I 7 ng/L (<or=76)
[2024-12-04 18:08] LABS: Glucose Negative (Negative)
[2024-12-04] MEDS: Normal Saline Flush 10 ML SYR IVP ×2 (20:22→20:23)
[2024-12-04 22:14] LABS: HCT 36.1 % (40.0-50.0); HGB 12.4 g/dL (13.5-17.5)
--- NOTE | 2024-12-05 | DI.RAD_ITS ---
Exam(s) XR FOOT LT COMPLETE XR ANKLE LT COMPLETE EXAM: XR ANKLE LT COMPLETE and XR foot LT complete CLINICAL HISTORY: cellulitis TECHNIQUE: 2D digital imaging was performed of the left foot and ankle. Six images were obtained. AP, lateral and oblique views were obtained. COMPARISON: There are no priors for comparison. FINDINGS: BONES: No acute fracture is present. No bony destructive lesion is seen. There is a large plantar calcaneal spur. There is a small enthesophyte at the posterior calcaneus. JOINTS:The ankle mortise is normally aligned. The joint spaces are well maintained. SOFT TISSUE: No soft tissue gas is seen. IMPRESSION: There is no radiographic evidence to suggest osteomyelitis in the foot or ankle at this time. DATA REPOSITORY: RADIATION DOSE DELIVERED:
[2024-12-05] MEDS: VANCOMYCIN/WATER (PEG) 1 GM/200 ML BAG IVPB ×2 (02:04→15:03)
[2024-12-05] MEDS: ACETAMINOPHEN 1,000 MG/100 ML BAG 400 MG IVPB (02:18)
[2024-12-05] MEDS: PIPERACILLIN/TAZO 4.5 GM in Normal Saline 100 ML IVPB ×4 (05:42→22:08)
[2024-12-05 06:20] LABS: Abs Immature Grans 0.05 10^3/uL (0.0-0.06); HCT 35.2 % (40.0-50.0); HGB 12.0 g/dL (13.5-17.5); Immature Grans % 0.4 %; MCH 32.2 pg (27.0-33.0); MCHC 34.1 % (32.0-36.0); MCV 94 fL (80-95); MPV 9.2 fL (8.0-11.0); Platelet Count 250 10^3/uL (130-400); RBC 3.73 10^6/uL (4.36-5.78); RDW 12.7 % (11.8-14.1); RDW-SD 44.1 fL; WBC 11.57 10^3/uL (4.4-10.8)
[2024-12-05 06:45] LABS: ALT 18 U/L (16-63); AST 20 U/L (15-37); Albumin 2.8 g/dL (3.4-5.0); Alkaline Phosphatase 91 U/L (46-116); Anion Gap 10.6 mmol/L (3-11); BUN 10 mg/dL (7-18); Bilirubin, Total 0.5 mg/dL (0.2-1.0); CO2 22.4 mmol/L (21.0-32.0); Calcium 7.8 mg/dL (8.5-10.1); Chloride 100 mmol/L (98-107); Estimated GFR 94.78 (mL/min/1.73m2); Glucose 98 mg/dL (74-106); Magnesium 2.0 mg/dL (1.8-2.4); Potassium 4.1 mmol/L (3.5-5.1); Sodium 133 mmol/L (136-145); Total Protein 6.1 g/dL (6.4-8.2)
[2024-12-05 07:49] VITALS: BP 138/67; PULSE 87; RESP 17; TEMP 37.1; O2SAT 95
[2024-12-05] MEDS: Multivitamin w/Minerals TAB 1 TAB PO (07:52)
[2024-12-05] MEDS: Omega-3 Fatty Acids 1000 MG CAP PO (07:53)
[2024-12-05] MEDS: Lisinopril 10 MG TAB 40 MG PO (07:53)
[2024-12-05] MEDS: amLODIPine 10 MG TAB PO (07:54)
[2024-12-05] MEDS: Aspirin 81 MG CHEW PO (07:55)
[2024-12-05] MEDS: Acetaminophen 325 MG TAB 650 MG PO ×3 (08:31→22:10)
[2024-12-05] MEDS: Normal Saline Flush 10 ML SYR IVP ×4 (08:31→22:15)
--- NOTE | 2024-12-05 09:45 | PT.INIE ---
PT Notes Visit Reasons: Foot Infection Inpatient Physical Therapy Evaluation Date: 12/05/24 Referring Doctor: Dr. Kraft PT Orders: PT CONSULT: Precautions: NWB LLE s/p wound debridement left foot 12/04/24 Patient Profile/Admitting Diagnosis: Rk is a 64 year old male with chronic left foot infection, now 1 day s/p debridement. Social History/Home Situation: Rk lives in a private home with his girlfriend. Has 3 CEZAR, then full flight of stairs to bedroom. Bathroom on each level. He is independent at baseline, without assistive device. 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 Equipment Owned/DME: none Subjective: Rk states that he is feeling good. His pain is well managed. He sat up to the recliner for most of the night, and states that he was able to get back to bed by standing and turning with help from nursing. Objective: General Observation: Resting in bed with LLE elevated. LLE wrapped to the just inferior to knee. Mental Status: A&Ox3. Pleasant and cooperative throughout. Able to provide clear history. Pain: well managed ROM: Right Upper Extremity: WFL Left Upper Extremity: WFL Right Lower Extremity: WFL Left Lower Extremity: WFL for hip and knee. Unable to assess at foot and ankle due to immobilization in wrap. Strength: Right Upper Extremity: Shoulder flexion 4+/5. Biceps 5/5. Triceps 5/5. Left Upper Extremity: Shoulder flexion 4+/5. Biceps 5/5. Triceps 5/5. Right Lower Extremity: Hip flexion 5/5. Quads 5/5. Ankle DF 5/5. Left Lower Extremity: MMT deferred. Demonstrates good AROM for hip flexion, knee flexion and extension. Bed Mobility/Transfers: supine-sit: supervision sit-stand: SBA, NWB LLE stand-sit: SBA, NWB LLE, with poorly controlled descent sit-supine: supervision Gait: Ambulates 6'x2 with FWW, NWB LLE. Adjusted walker height to appropriate level. Demonstrates good safety awareness and equipment management. No signs of imbalance. Balance: Static Sitting: normal Dynamic Sitting: good Static Standing: fair Dynamic Standing: fair Special Tests: Mobility Limitations Standardized Measure [facility] 6 clicks Basic Mobility Inpatient Short Form: Raw Score: 20 CMS Score: 36% impairment Informed Consent/Education: Patient instructed in purpose of PT consult and plan of care. Treatment: Initial evaluation (84384) Therapeutic exercises (15718 x 1): Instructed in the following bed exercises for independent completion hourly between PT sessions: Right ankle pumps 10 times SLR 10 times each Glutes sets 10 times each Assessment: Patient is a 64year old male referred to physical therapy services in acute care setting, where he is being medically managed for left foot cellulitis, 1 day status postdebridement. He is under orders for nonweightbearing left lower extremity. He presents with the following impairment level findings: 1. Decreased activity tolerance 2. Gait impairments 3. NWB left lower extremity 4. Decreased skin integrity Impairments are contributing to the following functional limitations: 1. Gait impairments 2. Unable to manage stairs 3. Unable to ambulate without assistive device 4. Decreased activity tolerance Patient is assessed as Moderate 62220 complexity based on the following: History: As above Examination: As above Presentation: Evolving due to acute medical status Decision Making: Moderate complexity Goals: Goals X1 week 1. Supine-Sit: supervision 2. Sit-Supine : supervision 3. Sit-Stand : supervision 4. Stand-Sit : supervision 5. Bed-Chair : supervision with FWW, NWB LLE 6. Chair-Bed : supervision with FWW, NWB LLE 7. Gait : supervision with FWW x 50', NWB LLE 8. Stairs : min A with bilat rails, NWB LLE Plan of Care/Treatment Plan: 1x/day, 7 days/week x 1 week. Plan of care has been reviewed with the [employer] providing the service under Physical Therapy direction. Initiate Physical Therapy intervention for strengthening, bed mobility, transfers, gait, stairs, balance training, use of assistive device. DISCHARGE RECOMMENDATIONS: Home with no services. Will require FWW prior to d/c to allow for patient to maintain NWB status. 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
--- NOTE | 2024-12-05 10:23 | PGE_ITS ---
Date of Service Date of service: 12/05/24 Time of Service: 09:40 Assessment and Plan Assessment and plan (1) Cellulitis of foot, left: Status: Acute (2) Vasculitis: Status: Acute (3) Tinea pedis: Status: Acute (4) PVD (peripheral vascular disease): Status: Chronic (5) Venous (peripheral) insufficiency: Status: Acute (6) Stasis dermatitis: Status: Acute (7) Cellulitis: Status: Acute Assessment and plan: Patient was seen bedside today. He is resting comfortably. White count noted to be decreased at this time. Dressings were removed today. Erythema, edema and warmth noted to be decreasing, no crepitus no fluctuance no bogginess. Erythema noted to be resolving at this time no evidence for purulent abscess at this time therefore no further I&D is indicated. No malodor noted today. Packing was removed and there was some oozing noted however no active arterial bleeding. Dressings were reapplied with Maxorb interdigitally and to the plantar and dorsal aspect of the foot, 4 x 4, Profore compression. Will continue IV antibiotics. Patient to keep the left lower extremity elevated at all times. Nursing to change dressings on Sunday with Maxorb, 4 x 4, Profore compression wrap. X-rays are pending. Biopsy and culture reports are pending. Will return to the OR for delayed primary closure of the plantar lateral left foot. Subjective Subjective Interval history since last seen: Patient seen bedside today resting comfortably. States that he has had pain to the left lower extremity. Pain is controlled by pain medication. No other pedal complaints at this time Exam Extrem Other: Vascular: DP to the left is palpable 1/4, remainder of the pulses are nonpalpable bilaterally.. There is resolving edema noted bilaterally left foot worse than right. Skin changes consistent with venous insufficiency bilaterally left worse than right. Venous ulcers to the left lower extremity. Significantly decreased erythema, edema and loss warmth to the left lower extremity. Capillary fill time is delayed to distal digits bilaterally. Skin temperature is warm to warm bilateral lower extremity. Varicosities and telangiectasias noted bilaterally. Hair growth absent bilaterally. MSK: Muscle strength is within normal limits and symmetrical to bilateral lower extremity. Ankle alignment is normal and ROM is normal and pain-free. Subtalar joint ROM is normal. Mid-tarsal joint ROM is normal. Metatarsophalangeal joint ROM is normal and pain free bilaterally. Hallux in good alignment and pain-free bilateral. The digits of b/l feet are in normal alignment. There is no pain on palpation to b/l heels. There is normal gait noted Derm: Nearly resolved erythema, less edema, less warmth noted to the left lower extremity noted to be resolving to the calf. Shallow venous ulcers noted to medial and lateral ankle to the left. Decreased erythema, edema, warmth, less drainage to the left foot today, there is no hemorrhagic thrombotic tissue noted to the plantar medial surface laterally, resolving interdigital maceration noted to the left toes, serous/green drainage noted, no crepitus no bogginess no fluctuance, there is malodor noted. Incision sites noted to be well coapted without any signs of dehiscence. Plantar lateral incision site with packing in place, mild oozing persists. Packing was removed. No crepitus no fluctuance no bogginess no proximal streaking Rash noted to be resolving bilaterally, left lower extremity worse and more coalescent than right appears improved to the left. Nails x 10 are severely elongated, gryphotic, thickened, discolored, with heavy subungual debris and pain, nails are growing in an upward fashion at around a 60 to 70 degree angle. No open venous ulcers at this time. Objective Last Vital Signs Temp 98.8 F 12/05/24 07:49 Pulse 87 12/05/24 07:49 Resp 17 12/05/24 07:49 BP 138/67 12/05/24 07:49 Pulse Ox 95 12/05/24 07:49 Laboratory Results - last 24 hr 12/04/24 12/04/24 12/04/24 11:03 13:27 16:44 WBC 15.56 H RBC 4.34 L Hgb 14.1 Hct 39.9 L MCV 92 MCH 32.5 MCHC 35.3 RDW 12.2 Plt Count 283 MPV 9.0 Immature Gran % 0.6 Neutrophils % 85.7 Lymphocytes % 4.3 Monocytes % 8.3 Eosinophils % 0.5 Basophils % 0.6 Nucleated RBC % 0.0 Absolute Neutrophils 13.33 H Absolute Lymphocytes 0.67 L Absolute Monocytes 1.29 H Absolute Eosinophils 0.08 Absolute Basophils 0.09 PT 10.0 INR 1.0 VBG Lactate 1.3 Sodium 132 L Potassium 4.3 Chloride 96 L Carbon Dioxide 24.3 Anion Gap 11.7 H BUN 8 Creatinine 1.0 Est GFR (CKD-EPI 2020) 83.52 Glucose 116 H Calcium 8.5 Magnesium 1.9 Total Bilirubin 0.6 AST 18 ALT 22 Alkaline Phosphatase 127 H Troponin I 6 6 7 Total Protein 7.3 Albumin 3.5 Urine Color Urine Clarity Urine pH Ur Specific [place] Urine Protein Urine Ketones Urine Blood Urine Nitrite Urine Bilirubin Urine Urobilinogen Ur Leukocyte Esterase Urine Glucose Random Vancomycin < 0.8 39.2 12/04/24 12/04/24 12/05/24 17:56 22:08 05:45 WBC 11.57 H RBC 3.73 L Hgb 12.4 L 12.0 L Hct 36.1 L 35.2 L MCV 94 MCH 32.2 MCHC 34.1 RDW 12.7 Plt Count 250 MPV 9.2 Immature Gran % 0.4 Neutrophils % 80.9 Lymphocytes % 8.0 Monocytes % 8.0 Eosinophils % 2.4 Basophils % 0.3 Nucleated RBC % 0.0 Absolute Neutrophils 9.36 H Absolute Lymphocytes 0.93 L Absolute Monocytes 0.93 H Absolute Eosinophils 0.28 Absolute Basophils 0.03 PT INR VBG Lactate Sodium 133 L Potassium 4.1 Chloride 100 Carbon Dioxide 22.4 Anion Gap 10.6 BUN 10 Creatinine 0.9 Est GFR (CKD-EPI 2020) 94.78 Glucose 98 Calcium 7.8 L Magnesium 2.0 Total Bilirubin 0.5 AST 20 ALT 18 Alkaline Phosphatase 91 Troponin I Total Protein 6.1 L Albumin 2.8 L Urine Color Yellow Urine Clarity Clear Urine pH 5.5 Ur Specific [place] 1.010 Urine Protein Negative Urine Ketones Trace H Urine Blood Negative Urine Nitrite Negative Urine Bilirubin Negative Urine Urobilinogen 0.2 Ur Leukocyte Esterase Negative Urine Glucose Negative Random Vancomycin PAWSS Have you Been Recently Intoxicated or Drunk Within the Last 30 days?: Yes Have you Ever Experienced Previous Episodes of Alcohol Withdrawal?: No Have you ever Experienced Withdrawal Seizures?: No Have you ever Experienced Delirium Tremens(DT)s?: No Have you ever undergone Alcohol Rehabilitation Treatment (i.e, inpt ot outpatient treatment programs)?: Yes Have you ever Experienced Blackouts?: Unable to Obtain Have you ever Combined Alcohol with other Downers within the last 90 days?: No Have you ever Combined Alcohol with any other Substance of Abuse during the last 90 days?: No Positive Blood Alcohol level on Presentation? [PCS.BAL]: No Evidence of Increased Autonomic Activity (i.e. HR>120, tremor, sweating, agitation, nausea)?: No Result: 2 Time Spent with Patient Time Spent with Patient: >50 minutes Time was spent: preparing to see the patient(eg.review tests), obtaining and/or reviewing separately otained hiistory, ordering medications,tests, procedures, referring, communicating with other health health care attorney, indepentently interpreting results, counseling the patient and care coordination
[2024-12-05 11:13] VITALS: BP 133/69; PULSE 96; RESP 17; TEMP 37.4; O2SAT 95
[2024-12-05] MEDS: traMADol 50 MG TAB PO (11:23)
[2024-12-05] MEDS: diphenhydrAMINE 25 MG CAP PO (12:06)
--- NOTE | 2024-12-05 14:29 | CHAPLAIN ---
Rk was in bed watching tv when I visited. He was pleasant and offered brief responses to questions. He said he's in touch with his girlfriend in [place], [place]. I explained my role and offered support.
--- NOTE | 2024-12-05 15:34 | PGE_ITS ---
Date of Service Date of service: 12/05/24 Time of Service: 11:30 Assessment and Plan Assessment and plan (1) Cellulitis of foot, left: Status: Acute Assessment and plan: Likely secondary to longstanding fungal infection affecting all 10 toes To OR with Dr Steiner Dec 04 for debridement Antibiotics changed to vanc & zosyn Monitor CBC Anticipate return to OR for wound closure Dec 08 (2) PVD (peripheral vascular disease): Status: Chronic Assessment and plan: Aortic runoff CT discontinued as foot blood flow was adequate (3) Hypertension: Status: Chronic Assessment and plan: Continue home ACEI, hold home CCB Subjective Subjective Interval history since last seen: Mr. Barlow is comfortable in bed. Pain well controlled on non-narcotics. He reports that he will go back to the OR on Sunday and will stay for the (confirmed). Exam Narrative Exam Narrative: General: This is a pleasant man in no distress HEENT: Normocephalic, atraumatic CV: RRR Resp: CTAB Abd: soft, NTND MSK: voluntary motion x4 Skin: Left ankles and foot erythematous and edematous with weeping wounds. BLE rash. Severe nail fungus in all 10 toes. Neuro: awake, alert, no focal deficits Objective Last Vital Signs Temp 37.4 C 12/05/24 11:13 Pulse 96 H 12/05/24 11:13 Resp 17 12/05/24 11:13 BP 133/69 12/05/24 11:13 Pulse Ox 95 12/05/24 11:13 Laboratory Results - last 24 hr 12/04/24 12/04/24 12/04/24 16:44 17:56 22:08 WBC RBC Hgb 12.4 L Hct 36.1 L MCV MCH MCHC RDW Plt Count MPV Immature Gran % Neutrophils % Lymphocytes % Monocytes % Eosinophils % Basophils % Nucleated RBC % Absolute Neutrophils Absolute Lymphocytes Absolute Monocytes Absolute Eosinophils Absolute Basophils Sodium Potassium Chloride Carbon Dioxide Anion Gap BUN Creatinine Est GFR (CKD-EPI 2020) Glucose Calcium Magnesium Total Bilirubin AST ALT Alkaline Phosphatase Troponin I 7 Total Protein Albumin Urine Color Yellow Urine Clarity Clear Urine pH 5.5 Ur Specific [place] 1.010 Urine Protein Negative Urine Ketones Trace H Urine Blood Negative Urine Nitrite Negative Urine Bilirubin Negative Urine Urobilinogen 0.2 Ur Leukocyte Esterase Negative Urine Glucose Negative Random Vancomycin 39.2 12/05/24 05:45 WBC 11.57 H RBC 3.73 L Hgb 12.0 L Hct 35.2 L MCV 94 MCH 32.2 MCHC 34.1 RDW 12.7 Plt Count 250 MPV 9.2 Immature Gran % 0.4 Neutrophils % 80.9 Lymphocytes % 8.0 Monocytes % 8.0 Eosinophils % 2.4 Basophils % 0.3 Nucleated RBC % 0.0 Absolute Neutrophils 9.36 H Absolute Lymphocytes 0.93 L Absolute Monocytes 0.93 H Absolute Eosinophils 0.28 Absolute Basophils 0.03 Sodium 133 L Potassium 4.1 Chloride 100 Carbon Dioxide 22.4 Anion Gap 10.6 BUN 10 Creatinine 0.9 Est GFR (CKD-EPI 2020) 94.78 Glucose 98 Calcium 7.8 L Magnesium 2.0 Total Bilirubin 0.5 AST 20 ALT 18 Alkaline Phosphatase 91 Troponin I Total Protein 6.1 L Albumin 2.8 L Urine Color Urine Clarity Urine pH Ur Specific [place] Urine Protein Urine Ketones Urine Blood Urine Nitrite Urine Bilirubin Urine Urobilinogen Ur Leukocyte Esterase Urine Glucose Random Vancomycin PAWSS Have you Been Recently Intoxicated or Drunk Within the Last 30 days?: Yes Have you Ever Experienced Previous Episodes of Alcohol Withdrawal?: No Have you ever Experienced Withdrawal Seizures?: No Have you ever Experienced Delirium Tremens(DT)s?: No Have you ever undergone Alcohol Rehabilitation Treatment (i.e, inpt ot outpatient treatment programs)?: Yes Have you ever Experienced Blackouts?: Unable to Obtain Have you ever Combined Alcohol with other Downers within the last 90 days?: No Have you ever Combined Alcohol with any other Substance of Abuse during the last 90 days?: No Positive Blood Alcohol level on Presentation? [PCS.BAL]: No Evidence of Increased Autonomic Activity (i.e. HR>120, tremor, sweating, agitation, nausea)?: No Result: 2 Time Spent with Patient Time Spent with Patient: 25-34 minutes Time was spent: preparing to see the patient(eg.review tests), obtaining and/or reviewing separately otained hiistory, ordering medications,tests, procedures, referring, communicating with other health career and guidance counselor, indepentently interpreting results, counseling the patient and care coordination
[2024-12-05 16:24] VITALS: BP 104/70; PULSE 97; RESP 16; TEMP 37.3; O2SAT 96
[2024-12-05 19:39] VITALS: BP 116/66; PULSE 86; TEMP 37; O2SAT 95
[2024-12-06] MEDS: VANCOMYCIN/WATER (PEG) 1 GM/200 ML BAG IVPB ×2 (02:54→14:43)
[2024-12-06] MEDS: PIPERACILLIN/TAZO 4.5 GM in Normal Saline 100 ML IVPB ×4 (04:33→22:15)
[2024-12-06] MEDS: traMADol 50 MG TAB PO (04:33)
[2024-12-06 04:40] VITALS: BP 123/71; PULSE 83; RESP 18; TEMP 37.2; O2SAT 94
[2024-12-06 06:50] LABS: Abs Immature Grans 0.03 10^3/uL (0.0-0.06); HCT 34.6 % (40.0-50.0); HGB 12.1 g/dL (13.5-17.5); Immature Grans % 0.3 %; MCH 32.8 pg (27.0-33.0); MCHC 35.0 % (32.0-36.0); MCV 94 fL (80-95); MPV 9.0 fL (8.0-11.0); Platelet Count 268 10^3/uL (130-400); RBC 3.69 10^6/uL (4.36-5.78); RDW 12.6 % (11.8-14.1); RDW-SD 43.6 fL; WBC 9.79 10^3/uL (4.4-10.8)
[2024-12-06 07:13] LABS: ALT 19 U/L (16-63); AST 19 U/L (15-37); Albumin 2.5 g/dL (3.4-5.0); Alkaline Phosphatase 81 U/L (46-116); Anion Gap 8.0 mmol/L (3-11); BUN 6 mg/dL (7-18); Bilirubin, Total 0.4 mg/dL (0.2-1.0); CO2 26.0 mmol/L (21.0-32.0); Calcium 7.7 mg/dL (8.5-10.1); Chloride 101 mmol/L (98-107); Estimated GFR 94.78 (mL/min/1.73m2); Glucose 93 mg/dL (74-106); Potassium 3.8 mmol/L (3.5-5.1); Sodium 135 mmol/L (136-145); Total Protein 6.1 g/dL (6.4-8.2)
[2024-12-06 07:51] VITALS: BP 125/69; PULSE 79; RESP 17; TEMP 36.7; O2SAT 95
[2024-12-06 09:28] VITALS: BP 126/63; PULSE 83; RESP 17; TEMP 37.1; O2SAT 95
[2024-12-06] MEDS: Lisinopril 10 MG TAB 40 MG PO (09:31)
[2024-12-06] MEDS: Omega-3 Fatty Acids 1000 MG CAP PO (09:31)
[2024-12-06] MEDS: amLODIPine 10 MG TAB PO (09:31)
[2024-12-06] MEDS: Normal Saline Flush 10 ML SYR IVP ×3 (09:32→22:16)
[2024-12-06] MEDS: Multivitamin w/Minerals TAB 1 TAB PO (09:32)
[2024-12-06] MEDS: Aspirin 81 MG CHEW PO (09:32)
[2024-12-06] MEDS: Acetaminophen 325 MG TAB 650 MG PO ×2 (09:51→17:34)
[2024-12-06 11:39] VITALS: BP 127/61; PULSE 82; RESP 17; TEMP 36.7; O2SAT 93
--- NOTE | 2024-12-06 14:04 | PT.INTREAT ---
PT Notes Visit Reasons: Foot Infection Inpatient Physical Therapy Treatment Note [facility] Date: 12/06/24 PRECAUTIONS:NWB LLE SUBJECTIVE: Bill is agreeable to PT intervention. OBJECTIVE: ? PAIN: 4/10 ? Therapeutic Exercises ([id number]): Direct one-on-one instruction in therapeutic exercises to develop strength, endurance, range of motion and flexibility. BED MOBILITY/TRANSFERS? Supine-sit: supervision? Sit-supine: supervision? Sit-stand: supervision? Stand-sit: supervision? Bed-Chair: supervision? ? wiht FWW ? Chair-bed: supervision? with FWW? GAIT? Assistive Device: FWW? Weight bearing: NWB LLE Assist: supervision ? Distance:? 15'x2 ? ? Deviation: assisted to toilet, where he requires max A for self-care due to requiring hands to FWW for balance ? STAIRS: discussed options for stair management, as Bill has 5 CEZAR with single rail. Established plan to trial stair management with NWB status tomorrow. ? EXERCISES: instructed in the following: chair pushups in long sit 10x SLR 10x10 second holds each ? ASSESSMENT:? Improving mobility and activity tolerance. Demonstrating good upper body strength; will trial stairs tomorrow. If unable to complete with WBing status, will require lift assist into home. PLAN: Continue progressing as tolerated TREATMENT CODE/TIME: 9916-7747; 6619-2142 DISCHARGE RECOMMENDATION: Home with PT. May require lift assist into home.
[2024-12-06 15:27] VITALS: BP 119/59; PULSE 69; RESP 17; TEMP 36.6; O2SAT 98
--- NOTE | 2024-12-06 16:26 | W.PM.PROGNOT ---
Date of Service Date of service: 12/06/24 Time of Service: 12:00 Assessment and Plan Assessment and plan (1) Cellulitis of foot, left: Status: Acute Assessment and plan: Likely secondary to longstanding fungal infection affecting all 10 toes To OR with Dr Steiner Dec 04 for debridement Antibiotics changed to vanc & zosyn Monitor CBC Anticipate return to OR for wound closure Dec 08 (2) PVD (peripheral vascular disease): Status: Chronic Assessment and plan: Aortic runoff CT discontinued as foot blood flow was adequate (3) Hypertension: Status: Chronic Assessment and plan: Continue home ACEI, hold home CCB Subjective Subjective Interval history since last seen: Mr. Barlow is resting comfortably. No overnight events, no new complaints. Exam Narrative Exam Narrative: General: This is a pleasant man in no distress HEENT: Normocephalic, atraumatic CV: RRR Resp: CTAB Abd: soft, NTND MSK: voluntary motion x4 Skin: Left ankles and foot wrapped, toes mobile. Neuro: awake, alert, no focal deficits Objective Last Vital Signs Temp 36.6 C 12/06/24 15:27 Pulse 69 12/06/24 15:27 Resp 17 12/06/24 15:27 BP 119/59 L 12/06/24 15:27 Pulse Ox 98 12/06/24 15:27 Laboratory Results - last 24 hr 12/06/24 06:34 WBC 9.79 RBC 3.69 L Hgb 12.1 L Hct 34.6 L MCV 94 MCH 32.8 MCHC 35.0 RDW 12.6 Plt Count 268 MPV 9.0 Immature Gran % 0.3 Neutrophils % 73.2 Lymphocytes % 12.1 Monocytes % 10.7 Eosinophils % 3.0 Basophils % 0.7 Nucleated RBC % 0.0 Absolute Neutrophils 7.17 H Absolute Lymphocytes 1.18 L Absolute Monocytes 1.05 H Absolute Eosinophils 0.29 Absolute Basophils 0.07 Sodium 135 L Potassium 3.8 Chloride 101 Carbon Dioxide 26.0 Anion Gap 8.0 BUN 6 L Creatinine 0.9 Est GFR (CKD-EPI 2020) 94.78 Glucose 93 Calcium 7.7 L Total Bilirubin 0.4 AST 19 ALT 19 Alkaline Phosphatase 81 Total Protein 6.1 L Albumin 2.5 L PAWSS Have you Been Recently Intoxicated or Drunk Within the Last 30 days?: Yes Have you Ever Experienced Previous Episodes of Alcohol Withdrawal?: No Have you ever Experienced Withdrawal Seizures?: No Have you ever Experienced Delirium Tremens(DT)s?: No Have you ever undergone Alcohol Rehabilitation Treatment (i.e, inpt ot outpatient treatment programs)?: Yes Have you ever Experienced Blackouts?: Unable to Obtain Have you ever Combined Alcohol with other Downers within the last 90 days?: No Have you ever Combined Alcohol with any other Substance of Abuse during the last 90 days?: No Positive Blood Alcohol level on Presentation? [PCS.BAL]: No Evidence of Increased Autonomic Activity (i.e. HR>120, tremor, sweating, agitation, nausea)?: No Result: 2 Time Spent with Patient Time Spent with Patient: 25-34 minutes Time was spent: preparing to see the patient(eg.review tests), obtaining and/or reviewing separately otained hiistory, ordering medications,tests, procedures, referring, communicating with other health date night caregiver, indepentently interpreting results, counseling the patient and care coordination
[2024-12-07 00:59] VITALS: BP 135/67; PULSE 80; RESP 18; TEMP 37.3
[2024-12-07] MEDS: VANCOMYCIN/WATER (PEG) 1 GM/200 ML BAG IVPB ×2 (01:00→14:39)
[2024-12-07] MEDS: Acetaminophen 325 MG TAB 650 MG PO ×4 (03:27→23:26)
[2024-12-07] MEDS: PIPERACILLIN/TAZO 4.5 GM in Normal Saline 100 ML IVPB ×4 (04:37→22:47)
[2024-12-07 06:33] LABS: Abs Immature Grans 0.03 10^3/uL (0.0-0.06); HCT 34.3 % (40.0-50.0); HGB 12.0 g/dL (13.5-17.5); Immature Grans % 0.3 %; MCH 32.8 pg (27.0-33.0); MCHC 35.0 % (32.0-36.0); MCV 94 fL (80-95); MPV 9.2 fL (8.0-11.0); Platelet Count 296 10^3/uL (130-400); RBC 3.66 10^6/uL (4.36-5.78); RDW 12.2 % (11.8-14.1); RDW-SD 42.3 fL; WBC 8.73 10^3/uL (4.4-10.8)
[2024-12-07 06:54] LABS: ALT 19 U/L (16-63); AST 19 U/L (15-37); Albumin 2.5 g/dL (3.4-5.0); Alkaline Phosphatase 75 U/L (46-116); Anion Gap 9.7 mmol/L (3-11); BUN 7 mg/dL (7-18); Bilirubin, Total 0.4 mg/dL (0.2-1.0); CO2 25.3 mmol/L (21.0-32.0); Calcium 8.0 mg/dL (8.5-10.1); Chloride 100 mmol/L (98-107); Estimated GFR 94.78 (mL/min/1.73m2); Glucose 92 mg/dL (74-106); Potassium 3.8 mmol/L (3.5-5.1); Sodium 135 mmol/L (136-145); Total Protein 6.2 g/dL (6.4-8.2)
[2024-12-07 09:21] VITALS: BP 134/71; PULSE 87; RESP 18; TEMP 36.8; O2SAT 98
[2024-12-07] MEDS: Normal Saline Flush 10 ML SYR IVP ×5 (09:25→23:32)
[2024-12-07] MEDS: Multivitamin w/Minerals TAB 1 TAB PO (09:25)
[2024-12-07] MEDS: Omega-3 Fatty Acids 1000 MG CAP PO (09:25)
[2024-12-07] MEDS: amLODIPine 10 MG TAB PO (09:25)
[2024-12-07] MEDS: Aspirin 81 MG CHEW PO (09:25)
[2024-12-07] MEDS: Lisinopril 10 MG TAB 40 MG PO (09:25)
--- NOTE | 2024-12-07 10:25 | PT.INTREAT ---
PT Notes Visit Reasons: Foot Infection Inpatient Physical Therapy Treatment Note [facility] Date: 12/07/24 PRECAUTIONS:NWB LLE SUBJECTIVE: Bill is agreeable to PT intervention. He is hoping that he can go home after his surgery tomorrow. OBJECTIVE: ? Therapeutic Exercises ([id number]): Direct one-on-one instruction in therapeutic exercises to develop strength, endurance, range of motion and flexibility. BED MOBILITY/TRANSFERS? Supine-sit: supervision? Sit-supine: supervision? Sit-stand: supervision? Stand-sit: supervision? Bed-Chair: supervision? ? wiht FWW ? Chair-bed: supervision? with FWW? GAIT? Assistive Device: FWW? Weight bearing: NWB LLE Assist: supervision ? Distance:? 15'x4 ? ? Deviation: assisted to toilet, where he is independent for self-care. Has single LOB in dynamic standing, recovered independently with UEs to FWW. ? STAIRS: instructed in stair management with NWB status, using single rail and contralateral axillary crutch. Managed 4 stair, 3x1, ascending and descending with CGA. Instructed in positioning for assistance from family, with patient verbalizing understanding. He's able to perform safely, but with PIERCE and reporting significant fatigue. ? EXERCISES: review the following: chair pushups in long sit 10x SLR 10x10 second holds each ankle pumps right quad sets bilat ? ASSESSMENT:? Improving mobility and activity tolerance. Demonstrating good upper body strength; did well on stairs. Will need FWW issued, and recommend checking in community for single crutch (donations often available through [employer] and [employer]). PLAN: Continue progressing as tolerated TREATMENT CODE/TIME: 7622-6599 ([id number]) DISCHARGE RECOMMENDATION: Home with HH PT. Will require FWW issued prior to d/c, and encourage locating a crutch in community for stair management.
--- NOTE | 2024-12-07 14:17 | W.PM.PROGNOT ---
Objective Last Vital Signs Temp 36.8 C 12/07/24 09:21 Pulse 87 12/07/24 09:21 Resp 18 12/07/24 09:21 BP 134/71 12/07/24 09:21 Pulse Ox 98 12/07/24 09:21 Laboratory Results - last 24 hr 12/07/24 05:50 WBC 8.73 RBC 3.66 L Hgb 12.0 L Hct 34.3 L MCV 94 MCH 32.8 MCHC 35.0 RDW 12.2 Plt Count 296 MPV 9.2 Immature Gran % 0.3 Neutrophils % 69.9 Lymphocytes % 13.7 Monocytes % 10.5 Eosinophils % 4.7 Basophils % 0.9 Nucleated RBC % 0.0 Absolute Neutrophils 6.09 Absolute Lymphocytes 1.20 Absolute Monocytes 0.92 H Absolute Eosinophils 0.41 Absolute Basophils 0.08 Sodium 135 L Potassium 3.8 Chloride 100 Carbon Dioxide 25.3 Anion Gap 9.7 BUN 7 Creatinine 0.9 Est GFR (CKD-EPI 2020) 94.78 Glucose 92 Calcium 8.0 L Total Bilirubin 0.4 AST 19 ALT 19 Alkaline Phosphatase 75 Total Protein 6.2 L Albumin 2.5 L PAWSS Have you Been Recently Intoxicated or Drunk Within the Last 30 days?: Yes Have you Ever Experienced Previous Episodes of Alcohol Withdrawal?: No Have you ever Experienced Withdrawal Seizures?: No Have you ever Experienced Delirium Tremens(DT)s?: No Have you ever undergone Alcohol Rehabilitation Treatment (i.e, inpt ot outpatient treatment programs)?: Yes Have you ever Experienced Blackouts?: Unable to Obtain Have you ever Combined Alcohol with other Downers within the last 90 days?: No Have you ever Combined Alcohol with any other Substance of Abuse during the last 90 days?: No Positive Blood Alcohol level on Presentation? [PCS.BAL]: No Evidence of Increased Autonomic Activity (i.e. HR>120, tremor, sweating, agitation, nausea)?: No Result: 2
[2024-12-07 16:12] VITALS: BP 121/67; PULSE 80; RESP 18; TEMP 36.6; O2SAT 97
--- NOTE | 2024-12-07 18:36 | PGE_ITS ---
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 Barlow is resting comfortably. No overnight events, no new complaints. Exam Narrative Exam Narrative: General: This is a pleasant man in no distress HEENT: Normocephalic, atraumatic CV: RRR Resp: CTAB Abd: soft, NTND MSK: voluntary motion x4 Skin: Left ankles and foot wrapped, toes mobile. Neuro: awake, alert, no focal deficits Objective Last Vital Signs Temp 36.6 C 12/07/24 16:12 Pulse 80 12/07/24 16:12 Resp 18 12/07/24 16:12 BP 121/67 12/07/24 16:12 Pulse Ox 97 12/07/24 16:12 Laboratory Results - last 24 hr 12/07/24 05:50 WBC 8.73 RBC 3.66 L Hgb 12.0 L Hct 34.3 L MCV 94 MCH 32.8 MCHC 35.0 RDW 12.2 Plt Count 296 MPV 9.2 Immature Gran % 0.3 Neutrophils % 69.9 Lymphocytes % 13.7 Monocytes % 10.5 Eosinophils % 4.7 Basophils % 0.9 Nucleated RBC % 0.0 Absolute Neutrophils 6.09 Absolute Lymphocytes 1.20 Absolute Monocytes 0.92 H Absolute Eosinophils 0.41 Absolute Basophils 0.08 Sodium 135 L Potassium 3.8 Chloride 100 Carbon Dioxide 25.3 Anion Gap 9.7 BUN 7 Creatinine 0.9 Est GFR (CKD-EPI 2020) 94.78 Glucose 92 Calcium 8.0 L Total Bilirubin 0.4 AST 19 ALT 19 Alkaline Phosphatase 75 Total Protein 6.2 L Albumin 2.5 L PAWSS Have you Been Recently Intoxicated or Drunk Within the Last 30 days?: Yes Have you Ever Experienced Previous Episodes of Alcohol Withdrawal?: No Have you ever Experienced Withdrawal Seizures?: No Have you ever Experienced Delirium Tremens(DT)s?: No Have you ever undergone Alcohol Rehabilitation Treatment (i.e, inpt ot outpatient treatment programs)?: Yes Have you ever Experienced Blackouts?: Unable to Obtain Have you ever Combined Alcohol with other Downers within the last 90 days?: No Have you ever Combined Alcohol with any other Substance of Abuse during the last 90 days?: No Positive Blood Alcohol level on Presentation? [PCS.BAL]: No Evidence of Increased Autonomic Activity (i.e. HR>120, tremor, sweating, agitation, nausea)?: No Result: 2 Time Spent with Patient Time Spent with Patient: 25-34 minutes Time was spent: preparing to see the patient(eg.review tests), obtaining and/or reviewing separately otained hiistory, ordering medications,tests, procedures, referring, communicating with other health ambulatory care coordinator, indepentently interpreting results, counseling the patient and care coordination
[2024-12-07 19:42] VITALS: BP 137/68; PULSE 84; RESP 16; TEMP 36.4; O2SAT 98
[2024-12-07 22:26] LABS: Vancomycin, Random 15.0 ug/mL
[2024-12-08] MEDS: VANCOMYCIN/WATER (PEG) 1 GM/200 ML BAG IVPB ×2 (01:52→15:10)
[2024-12-08] MEDS: PIPERACILLIN/TAZO 4.5 GM in Normal Saline 100 ML IVPB ×4 (04:35→22:54)
[2024-12-08 06:43] LABS: Abs Immature Grans 0.06 10^3/uL (0.0-0.06); HCT 34.2 % (40.0-50.0); HGB 11.9 g/dL (13.5-17.5); Immature Grans % 0.7 %; MCH 32.3 pg (27.0-33.0); MCHC 34.8 % (32.0-36.0); MCV 93 fL (80-95); MPV 9.0 fL (8.0-11.0); Platelet Count 315 10^3/uL (130-400); RBC 3.68 10^6/uL (4.36-5.78); RDW 12.4 % (11.8-14.1); RDW-SD 42.2 fL; WBC 8.84 10^3/uL (4.4-10.8)
[2024-12-08 07:04] LABS: Anion Gap 10.0 mmol/L (3-11); BUN 11 mg/dL (7-18); CO2 24.0 mmol/L (21.0-32.0); Calcium 8.3 mg/dL (8.5-10.1); Chloride 102 mmol/L (98-107); Estimated GFR 83.52 (mL/min/1.73m2); Glucose 92 mg/dL (74-106); Potassium 3.7 mmol/L (3.5-5.1); Sodium 136 mmol/L (136-145)
[2024-12-08] MEDS: Multivitamin w/Minerals TAB 1 TAB PO (09:00)
[2024-12-08] MEDS: Lisinopril 10 MG TAB 40 MG PO (09:01)
[2024-12-08] MEDS: Aspirin 81 MG CHEW PO (09:01)
[2024-12-08] MEDS: Omega-3 Fatty Acids 1000 MG CAP PO (09:01)
[2024-12-08] MEDS: amLODIPine 10 MG TAB PO (09:01)
[2024-12-08] MEDS: Acetaminophen 325 MG TAB 650 MG PO (09:01)
[2024-12-08] MEDS: Normal Saline Flush 10 ML SYR IVP ×3 (09:01→20:52)
[2024-12-08 09:16] VITALS: BP 119/68; PULSE 69; RESP 16; TEMP 36.7; O2SAT 98
--- NOTE | 2024-12-08 09:20 | PT.INTREAT ---
PT Notes Visit Reasons: Foot Infection Inpatient Physical Therapy Treatment Note [facility] Date: 12/08/2024 PRECAUTIONS: NWB LLE SUBJECTIVE: Reporied 4-510 pain in the l foot and leg during session. HAs another surgery at 1 PM today. is hopeful that he be ot sent home right away until his issue is fully addressed, hoping that patient could be kept at least 2 days to recuerate further as deeply worries about patient. OBJECTIVE: ? patient resting inbed. Dressing to L ankle and foot. Erythema to l leg and toes ? BED MOBILITY/TRANSFERS? Supine-sit: supervision? Sit-supine: supervision? Sit-stand: supervision? Stand-sit: supervision? Bed-Chair: supervision? ? wiht FWW ? Chair-bed: supervision? with FWW? GAIT? Deferred walking until after surgery at 1 PM today per patient request. Patient is extra cautious about doing anything ore to the foot before the afternoon surgery happens. He has been NPO since last night and so he did ot need to sit up on the chair to eat lunch.? STAIRS: Deferred until after surgery ? THERA EX: reviewed exercises with patient who demosntrated good mastery fo the ff chair pushups in long sit 10x SLR 10x10 second holds each ankle pumps right quad sets bilat ? ASSESSMENT:? Patient did not want to do a lot today as his afternoon surgery is this afternoon. Patient and wanted to make sure that they noth get training with doing stairs prior to going home. Patient was issued and fitted a FWW during this session. DISCHARGE RECOMMENDATION: PT PLAN: Progress functional mobility performance as tolerated using appropriate AD and WB precaution. TREATMENT CODE/TIME: 59774 x 17 minutes for 1 unit (9:20-9:37).
[2024-12-08 11:13] VITALS: BP 122/63; PULSE 75; RESP 16; TEMP 36.5; O2SAT 97
--- NOTE | 2024-12-08 12:30 | ANES.PREOP_ITS ---
General Info Date of Service Date Performed: 12/08/24 Height: 6 ft 3 in Weight: 99.79 kg Body Mass Index (BMI): 27.5 Surgical Procedure: Operation Date: 12/04/24 13:10 Proposed Procedure Side Surgeon p I&D Foot Left Moon Murrell DPM Actual Procedure Side Surgeon p I&D Foot Left Moon Murrell DPM Pre-Op Diagnosis Post-Op Diagnosis L foot abscess, L foot cellulitis L foot cellulitis Operation Date: 12/08/24 13:10 Proposed Procedure Side Surgeon p Delayed Primary Closure Moon Murrell DPM Actual Procedure Side Surgeon p Delayed Primary Closure Not Applicable Moon Murrell DPM Pre-Op Diagnosis Post-Op Diagnosis PRIMARY INSCISION OF LEFT FOOT PRIMARY INSCISION OF LEFT FOOT Meds Allergies and Home Medications Allergies Allergy/AdvReac Type Severity Reaction Status Date / Time No Known Allergies Allergy Verified 12/04/24 10:33 Home Medication ?Medication ?Instructions ?Recorded ibuprofen 800 mg tablet 800 mg PO Q8H 10/31/24 amlodipine 10 mg tablet 10 mg PO DAILY 11/04/24 aspirin 81 mg tablet 81 mg PO DAILY 11/04/24 ketoconazole 2 % topical cream See Rx Instructions top ical DAILY 11/04/24 #30 grams lisinopril 40 mg tablet 40 mg PO DAILY 11/04/24 omega 6-foz-pcs-fish oil 60 mg-90 1 cap PO DAILY 11/04 mg-500 mg capsule (Fish Oil) amoxicillin 500 mg-potassium 1 tab PO BID 7 days #14 t abs 12/02/24 clavulanate 125 mg tablet (Augmentin) ciprofloxacin HCl 500 mg tablet 500 mg PO BID #14 tabs 12/02/24 terbinafine HCl 250 mg tablet 250 mg PO DAILY 30 days #30 tabs 12/02/24 sodium hypochlorite 0.125 % 1 applic topical DAILY #47 3 mL 12/03/24 solution (Dakin's Solution) mv,Ca,vvr-lspw-MW-lycopene 1 tab PO DAILY 12/04/24 Current Visit Medications: Current Medications Generic Name Dose Route Start Last Admin Trade Name Freq PRN Reason Stop Dose Admin Acetaminophen 650 mg 12/05/24 08:01 12/08/24 09:01 Acetaminophen 325 Mg Tab PO 650 mg Q4H PRN PRN Administration Amlodipine Besylate 10 mg 12/05/24 08:30 12/08/24 09:01 Amlodipine 10 Mg Tab PO 10 mg DAILY LALIT Administration Aspirin 81 mg 12/05/24 08:30 12/08/24 09:01 Aspirin 81 Mg Chew PO 81 mg DAILY LALIT Administration Fish Oil 1,000 mg 12/05/24 08:30 12/08/24 09:01 [place]-3 Fatty Acids 1000 Mg Cap PO 1,000 mg DAILY LALIT Administration Piperacillin Sod/Tazobactam 100 mls @ 200 mls/hr 12/04/24 17:00 12/08/24 11:50 Sod 4.5 gm/ Sodium Chloride IVPB 200 mls/hr Q6H LALIT Administration Vancomycin/PEG/NADA/Lysine/Water 1 gm in 200 mls @ 133.333 mls/hr 12/05/24 02:00 12/08/24 04:36 Vancocin Injection IVPB Infused Q12H LALIT Infusion IV Miscellaneous Supplies 1 each 12/04/24 12:00 Iv Access IV DIRECTED LALIT Iron/Minerals/Multivitamins 1 tab 12/05/24 08:30 12/08/24 09:00 Multivitamin W/Minerals Tab PO 1 tab DAILY LALIT Administration Lisinopril 40 mg 12/05/24 08:30 12/08/24 09:01 Lisinopril 10 Mg Tab PO 40 mg DAILY LALIT Administration Polyethylene Glycol 17 gm 12/04/24 11:52 Polyethylene Glycol 3350 17 Gm Packet PO DAILY PRN PRN Constipation Sodium Chloride 0 ml 12/04/24 11:52 12/07/24 14:39 Normal Saline Flush 10 Ml Syr IVP 20 ml PRN PRN Administration Sodium Chloride 0 ml 12/04/24 20:00 12/08/24 09:01 Normal Saline Flush 10 Ml Syr IVP 10 ml BID LALIT Administration Sodium Chloride 0 ml 12/04/24 11:52 Normal Saline 10 Ml Vial IJ DIRECTED PRN Sodium Chloride 0 ml 12/04/24 15:39 12/07/24 23:32 Normal Saline Flush 10 Ml Syr IVP 10 ml PRN PRN Administration Sodium Hypochlorite 473 ml 12/04/24 15:00 12/04/24 14:43 Dakin's Solution 0.25% 473 Ml Btl TP 01/03/25 14:59 398 ml DIRECTED LALIT Administration Tramadol HCl 50 mg 12/05/24 08:02 12/06/24 04:33 Tramadol 50 Mg Tab PO 50 mg Q6H PRN PRN Administration PFSH Active Problems Active Problems: Problem Status Onset Code Cellulitis of foot, left Acute L03.116 Vasculitis Acute I77.6 Tinea pedis Acute B35.3 Coronary arteriosclerosis Acute I25.10 Hyponatremia Acute E87.1 Mass of right adrenal gland Acute E27.8 Pulmonary emphysema Acute J43.9 Harmful pattern of use of alcohol Acute F10.10 PVD (peripheral vascular disease) Chronic I73.9 Hypertension Chronic I10 Onychomycosis Acute B35.1 Onychogryphosis Acute L60.2 Other specified peripheral vascular diseases Acute I73.89 Venous (peripheral) insufficiency Acute I87.2 Stasis dermatitis Acute I87.2 Cellulitis Acute L03.90 Tobacco user Acute Z72.0 Medical History Medical History Toe fracture, right 1st digit Tobacco Smoking/Tobacco Use Status: Current every day Tobacco Type: cigarettes Smoking packs per day: 1 Smoking cigarettes per day: 20.0 Alcohol Alcohol Intake: current Substance Use Substance use: Never Vital Signs and Lab Results Vital Signs Most Recent Vital Signs in EMR: Most Recent Vital Signs Temp Pulse Resp BP Pulse Ox 36.5 C 75 16 122/63 97 12/08/24 11:13 12/08/24 11:13 12/08/24 11:13 12/08/24 11:13 12/08/24 11:13 Lab Results 12/08/24 06:00 12/08/24 06:00 Complete Blood Count: 2 WBC, (4.4-10.8) 8.84 10^3/uL Today, 06:00 RBC, (4.36-5.78) 3.68 10^6/uL L Today, 06:00 Hgb, (13.5-17.5) 11.9 g/dL L Today, 06:00 Hct, (40.0-50.0) 34.2 % L Today, 06:00 Plt Count, (130-400) 315 10^3/uL Today, 06:00 VBG Lactate, (<or=2.0) 1.3 mmol/L 12/04/24, 11:03 Complete Metabolic Panel: 2 Sodium, (136-145) 136 mmol/L Today, 06:00 Potassium, (3.5-5.1) 3.7 mmol/L Today, 06:00 Chloride, (98-107) 102 mmol/L Today, 06:00 Carbon Dioxide, (21.0-32.0) 24.0 mmol/L Today, 06:00 BUN, (7-18) 11 mg/dL Today, 06:00 Creatinine, (0.70-1.30) 1.0 mg/dL Today, 06:00 Est GFR (CKD-EPI 2020), (mL/min/1.73m2) 83.52 Today, 06:00 Magnesium, (1.8-2.4) 2.0 mg/dL 12/05/24, 05:45 Calcium, (8.5-10.1) 8.3 mg/dL L Today, 06:00 Albumin, (3.4-5.0) 2.5 g/dL L 12/07/24, 05:50 Glucose, (74-106) 92 mg/dL Today, 06:00 C-Reactive Protein, (<or=0.5) 12.18 mg/dL H 12/04/24, 09:15 Liver Function Panel: 2 ALT, (16-63) 19 U/L 12/07/24, 05:50 AST, (15-37) 19 U/L 12/07/24, 05:50 Coagulation Panel: 2 INR, (0.9-1.1) 1.0 12/04/24, 11:03 PT, (9.1-11.1) 10.0 sec 12/04/24, 11:03 Cardiac Panel: 2 Troponin I, (<or=76) 7 ng/L 12/04/24 Anesthesia Assessment and Plan Anesthesia History Personal History: No History of Anesthesia Complications Family History: No Family History of Anesthesia Complications Exercise Tolerance Exercise Tolerance: Metabolic Equivalents>4 Pertinent Negatives Pertinent Negatives: No Symptoms of GERD, No Major Cardiovascular Symptoms or Complaints and No Major Pulmonary Symptoms or Complaints Cardiac & Pulmonary Exam Cardiac Exam: Normal S1/S2 Heart Sounds Pulmonary Exam: Clear Bilateral Breath Sounds Implantable Cardiac Device Does patient have a Pacemaker or an ICD?: No Airway Exam Known Difficult Airway: No Mallampati Class: 2 Mouth Opening: Normal (> 3cm) Thyromental Distance: Greater than 3 cm Neck Range of Motion: Full ROM Neck Circumference: Normal Teeth Condition: Generalized Poor Dentition ASA Classification ASA Score: ASA 3 Emergency Case?: No NPO Status NPO Status: NPO Clears >2 hours, Solids >8 hours Anesthesia Plan Resuscitation Status: Full Code Anesthesia Technique: General Anesthesia Airway Planned: Natural Airway Monitors Used: Standard Monitors
[2024-12-08 12:32] VITALS: BMI 27.5
[2024-12-08] MEDS: fentaNYL 100 MCG/2 ML VIAL 50 MCG IVP (13:20)
--- NOTE | 2024-12-08 14:19 | PGE_ITS ---
Date of Service Date of service: 12/08/24 Time of Service: 13:00 Assessment and Plan Assessment and plan (1) Cellulitis of foot, left: Status: Acute (2) Vasculitis: Status: Acute (3) Tinea pedis: Status: Acute (4) PVD (peripheral vascular disease): Status: Chronic (5) Venous (peripheral) insufficiency: Status: Acute (6) Stasis dermatitis: Status: Acute (7) Cellulitis: Status: Acute Assessment and plan: Patient was seen in preop holding. Dressings were removed. Upon removal of dressing, there was some pain reported since there are open shallow wounds. Patient was given fentanyl for pain control. Currently, the plan was for delayed primary closure of the plantar incision site however the plantar incision site noted to be very well coapted and healing well although not completely healed. Decision was made against delayed primary closure since that was not indicated anymore since the incision is healing well. Patient understood and agreed. The left lower extremity was scrubbed. Dressings were then applied with Adaptic, 4 x 4, Kerlix and a Profore wrap. Patient is to leave this clean, dry and intact. Patient is okay to be discharged with 1 week of antibiotics from a podiatry standpoint. Patient to follow-up within 1 week in office upon discharge. Subjective Subjective Interval history since last seen: Patient was seen in preop holding. He reports less pain to the left lower extremity. He has kept the left lower extremity clean, dry and intact. He has remained nonweightbearing to the left lower extremity. No calf pain or chest pain reported. No reported nausea vomiting chills fever diarrhea Exam Extrem Other: Vascular: DP to the left is palpable 1/4, remainder of the pulses are nonpalpable bilaterally.. There is resolving edema noted bilaterally left foot worse than right. Skin changes consistent with venous insufficiency bilaterally left worse than right. Venous ulcers to the left lower extremity. Resolved erythema, less edema and loss warmth to the left lower extremity. Capillary fill time is delayed to distal digits bilaterally. Skin temperature is warm to warm bilateral lower extremity. Varicosities and telangiectasias noted bilaterally. Hair growth absent bilaterally. Derm: resolved erythema, less edema, resolved warmth noted to the left lower extremity. Shallow venous ulcers noted to medial and lateral ankle to the left. Decreased erythema, edema, warmth, less drainage to the left foot today, resolving interdigital maceration noted to the left toes, serous/green drainage noted, no crepitus no bogginess no fluctuance, there is malodor noted. Incision sites noted to be well coapted without any signs of dehiscence. Plantar lateral incision site very well coapted appears to be healing well, no drainage no malodor some eschar noted plantarly consistent with recent bleeding, no surrounding erythema no crepitus no fluctuance no bogginess no proximal streaking Rash noted to be resolving bilaterally, left lower extremity worse and more coalescent than right appears improved to the left. Nails x 10 are severely elongated, gryphotic, thickened, discolored, with heavy subungual debris and pain, nails are growing in an upward fashion at around a 60 to 70 degree angle. No open venous ulcers at this time. Objective Last Vital Signs Temp 97.7 F 12/08/24 11:13 Pulse 75 12/08/24 11:13 Resp 16 12/08/24 11:13 BP 122/63 12/08/24 11:13 Pulse Ox 97 12/08/24 11:13 Laboratory Results - last 24 hr 12/07/24 12/08/24 10:05 06:00 WBC 8.84 RBC 3.68 L Hgb 11.9 L Hct 34.2 L MCV 93 MCH 32.3 MCHC 34.8 RDW 12.4 Plt Count 315 MPV 9.0 Immature Gran % 0.7 Neutrophils % 65.9 Lymphocytes % 16.5 Monocytes % 10.6 Eosinophils % 5.2 Basophils % 1.1 Nucleated RBC % 0.0 Absolute Neutrophils 5.82 Absolute Lymphocytes 1.46 Absolute Monocytes 0.94 H Absolute Eosinophils 0.46 Absolute Basophils 0.10 Sodium 136 Potassium 3.7 Chloride 102 Carbon Dioxide 24.0 Anion Gap 10.0 BUN 11 Creatinine 1.0 Est GFR (CKD-EPI 2020) 83.52 Glucose 92 Calcium 8.3 L Random Vancomycin 15.0 PAWSS Have you Been Recently Intoxicated or Drunk Within the Last 30 days?: Yes Have you Ever Experienced Previous Episodes of Alcohol Withdrawal?: No Have you ever Experienced Withdrawal Seizures?: No Have you ever Experienced Delirium Tremens(DT)s?: No Have you ever undergone Alcohol Rehabilitation Treatment (i.e, inpt ot outpatient treatment programs)?: Yes Have you ever Experienced Blackouts?: Unable to Obtain Have you ever Combined Alcohol with other Downers within the last 90 days?: No Have you ever Combined Alcohol with any other Substance of Abuse during the last 90 days?: No Positive Blood Alcohol level on Presentation? [PCS.BAL]: No Evidence of Increased Autonomic Activity (i.e. HR>120, tremor, sweating, agitation, nausea)?: No Result: 2 Time Spent with Patient Time Spent with Patient: 35-49 minutes Time was spent: preparing to see the patient(eg.review tests), obtaining and/or reviewing separately otained hiistory, ordering medications,tests, procedures, referring, communicating with other health insurance healthcare consultant, indepentently interpreting results, counseling the patient, care coordination and other
[2024-12-08 15:23] VITALS: BP 138/64; PULSE 71; RESP 17; TEMP 36.5; O2SAT 100
[2024-12-08] MEDS: traMADol 50 MG TAB PO ×2 (16:51→22:59)
--- NOTE | 2024-12-08 17:38 | CMPROGNOTE_ITS ---
Date of service: 12/08/24 Time of Service: 17:38 Care Management Progress Note Progress Note Text Progress Note Text: CM met with Bill a couple of times today. He was very pleasant with CM. His and [email or web address] visited today. His had a lot of questions that CM was able to answer regarding his treatment. Bill was to go to the OR for surgical wound closure today, but the mechanical specialist felt the wound had closed enough from her last treatment that it did not require additional surgery. Bill was pleased with this, as was his . Discharge Potential Discharge Needs: PCP F/U Appt and Surgical F/U Appt (podiatry) Anticipated Barriers to Discharge: None Identified Patient/Family Education Needs: Review discharge instructions, discuss Ask Me Three Transportation: Private vehicle Plan: Bill will discharge home tomorrow with new services of SN for wound care and PT for strengthening. He will f/u with his PCP and with the mechanical specialist and continue per his plan of care. Bill will transport home with his in a private vehicle. CM will continue to follow. Social Determinants of Health Screening Will the Patient Participate in the Screening?: Unable to obtain
--- NOTE | 2024-12-08 18:23 | PGE_ITS ---
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 Vanc & zosyn while hospitalized. Need PO course with pseudomonal coverage at discharge (2) PVD (peripheral vascular disease): Status: Chronic Assessment and plan: Aortic runoff CT discontinued as foot blood flow was adequate (3) Hypertension: Status: Chronic Assessment and plan: Continue home ACEI, hold home CCB Subjective Subjective Interval history since last seen: Mr. Barlow is comfortable in bed. He did not need repeat surgery today to close his food wound; Dr Murrell reports that the 2 sutures in his foot have held up well. He is medically cleared for discharge, unable to be home on the , can depart on the . Will need HH RN and PT. Will need to continue PO antibiotics with pseudomonal coverage. Exam Narrative Exam Narrative: General: This is a pleasant man in no distress HEENT: Normocephalic, atraumatic CV: RRR Resp: CTAB Abd: soft, NTND MSK: voluntary motion x4 Skin: Left ankles and foot wrapped, toes mobile. Neuro: awake, alert, no focal deficits Objective Last Vital Signs Temp 36.5 C 12/08/24 15:23 Pulse 71 12/08/24 15:23 Resp 17 12/08/24 15:23 BP 138/64 12/08/24 15:23 Pulse Ox 100 12/08/24 15:23 Laboratory Results - last 24 hr 12/07/24 12/08/24 10:05 06:00 WBC 8.84 RBC 3.68 L Hgb 11.9 L Hct 34.2 L MCV 93 MCH 32.3 MCHC 34.8 RDW 12.4 Plt Count 315 MPV 9.0 Immature Gran % 0.7 Neutrophils % 65.9 Lymphocytes % 16.5 Monocytes % 10.6 Eosinophils % 5.2 Basophils % 1.1 Nucleated RBC % 0.0 Absolute Neutrophils 5.82 Absolute Lymphocytes 1.46 Absolute Monocytes 0.94 H Absolute Eosinophils 0.46 Absolute Basophils 0.10 Sodium 136 Potassium 3.7 Chloride 102 Carbon Dioxide 24.0 Anion Gap 10.0 BUN 11 Creatinine 1.0 Est GFR (CKD-EPI 2020) 83.52 Glucose 92 Calcium 8.3 L Random Vancomycin 15.0 PAWSS Have you Been Recently Intoxicated or Drunk Within the Last 30 days?: Yes Have you Ever Experienced Previous Episodes of Alcohol Withdrawal?: No Have you ever Experienced Withdrawal Seizures?: No Have you ever Experienced Delirium Tremens(DT)s?: No Have you ever undergone Alcohol Rehabilitation Treatment (i.e, inpt ot outpatient treatment programs)?: Yes Have you ever Experienced Blackouts?: Unable to Obtain Have you ever Combined Alcohol with other Downers within the last 90 days?: No Have you ever Combined Alcohol with any other Substance of Abuse during the last 90 days?: No Positive Blood Alcohol level on Presentation? [PCS.BAL]: No Evidence of Increased Autonomic Activity (i.e. HR>120, tremor, sweating, agitation, nausea)?: No Result: 2 Time Spent with Patient Time Spent with Patient: 25-34 minutes Time was spent: preparing to see the patient(eg.review tests), obtaining and/or reviewing separately otained hiistory, ordering medications,tests, procedures, referring, communicating with other health lawn care professional, indepentently interpreting results, counseling the patient and care coordination
[2024-12-08 19:50] VITALS: BP 123/77; PULSE 71; RESP 16; TEMP 36.5; O2SAT 98
[2024-12-08 23:10] VITALS: BP 118/65; PULSE 73; RESP 16; TEMP 36.6; O2SAT 97
[2024-12-09] MEDS: VANCOMYCIN/WATER (PEG) 1 GM/200 ML BAG IVPB (01:45)
[2024-12-09] MEDS: PIPERACILLIN/TAZO 4.5 GM in Normal Saline 100 ML IVPB ×2 (05:02→12:15)
[2024-12-09 06:17] VITALS: BP 146/70; PULSE 87; RESP 16; TEMP 35.9; O2SAT 97
[2024-12-09 07:25] VITALS: BP 98/65; PULSE 80; RESP 16; TEMP 36.8; O2SAT 97
--- NOTE | 2024-12-09 09:35 | PDOC.CMDIS ---
Date of service: 12/09/24 Time of Service: 09:35 LACE Index Scoring Tool Questions: Length of Stay (in days): 4 - 6 Was the patient admitted via the E.D.?: Yes E.D. Visits: 1 Answers: Total Score: 8 Risk of Readmission: Low Risk Care Management Discharge Plan Reason for Hospitalization: foot infection/cellulitis Discharge Plan: Bill will discharge home today with new services through [facility] of SN and PT. He will f/u with his PCP and with the surgeon at a previously scheduled visit on 12/16. He will transport home in a private vehicle with his partner and continue per his plan of care. Patient/Family Education Needs: Review of discharge instructions, activity, limitations and discuss Ask me 3. Services Needed at Discharge: Home Health Care Services ([facility] - SN and PT)
[2024-12-09] MEDS: Aspirin 81 MG CHEW PO (09:51)
[2024-12-09] MEDS: Multivitamin w/Minerals TAB 1 TAB PO (09:51)
[2024-12-09] MEDS: amLODIPine 10 MG TAB PO (09:51)
[2024-12-09] MEDS: Acetaminophen 325 MG TAB 650 MG PO (09:51)
[2024-12-09] MEDS: Lisinopril 10 MG TAB 40 MG PO (09:51)
[2024-12-09] MEDS: Omega-3 Fatty Acids 1000 MG CAP PO (09:51)
[2024-12-09 10:32] LABS: ESR 40 mm/hr (0-20)
--- NOTE | 2024-12-09 11:02 | PT.INTREAT ---
PT Notes Visit Reasons: Foot Infection Inpatient Physical Therapy Treatment Note [facility] Date: 12/09/2024 PRECAUTIONS: NWB LLE SUBJECTIVE: Reported 3/10 pain in the l foot and leg during session. Surgery was cancelled by customer success advocate yesterday wound was holding up well and did not need additional closure procedure. patient was agreeable to walking in the morning to get moving and would like to do the stairs when arrives for hospital discharge. Has been doing his exercises well 2-3x day on his own. OBJECTIVE: ? Patient resting in bed. Dressing to L ankle and foot. Erythema to L leg and toes. Swelling in L toes. ? BED MOBILITY/TRANSFERS? Supine-sit: independent ? Sit-supine: independent ? Sit-stand: supervision? Stand-sit: supervision? Bed-Chair: supervision?wiht FWW ? Chair-bed: supervision?with FWW? GAIT? 250 feet with NWB on the L using FWW, Stand by assist only with pain level increased to 4/10. STAIRS: Caregiver training with --pp and down 12 x 4-inch steps and 8 x 6-inch steps, one hand on rail and the L using an axillary crutch with contact guard assist of Rosibel, NWB through L LE. ? THERA EX: Reviewed exercises with patient who demosntrated good mastery fo the ff chair pushups in long sit 10x SLR 10x10 second holds each ankle pumps right quad sets bilat ? ASSESSMENT:? Demonstrated improved mobility performance and tolerance today with decreased pain report. Caregiver training and education was done with and [id number] prior to today's discharge with good techniques emphasized. DISCHARGE RECOMMENDATION: PT PLAN: Progress functional mobility performance as tolerated using appropriate AD and WB precaution. TREATMENT CODE/TIME: Session 1--62413 x 24 minutes for 2 unit (11:02-11:26). Session 2-- [id number] x 27 minutes for 2 units (13:31-13:58).
[2024-12-09 11:39] LABS: C-Reactive Protein 2.48 mg/dL (<or=0.5)
--- NOTE | 2024-12-09 11:47 | W.PM.DS.N ---
Date of service: 12/09/24 Time of Service: 11:48 DS: Diagnosis Discharge Diagnosis (1) Cellulitis of foot, left: Status: Acute (2) PVD (peripheral vascular disease): Status: Chronic (3) Hypertension: Status: Chronic Discharge Plan Disposition Patient Disposition: Home W/Home Health Services Condition: Improving Discharge Details Reason For Visit: Foot Infection Admit Date/Time: 12/04/24 11:52 Admit Provider: Wayne Kraft Attending Provider: Wayne Kraft Primary Care Provider: Treasure Ocampo Hospital Course Hospital Course: Rk Barlow is a 64 year old man with PMH includes CAD, COPD, venous insufficiency, and tobacco dependence who presented December 04, sent in from podiatry clinic for worsening left foot/ankle wounds. He had failed multiple amox/clav and cipro orally. He was started on pip/tazo and vancomycin. OR debridement was the initial plan per Dr. Murrell, but the wound was healing so he did not need this. Blood and wound cultures were negative from this admission, with / wound cultures growing pansensitive pseudomonas and group G strep. He was discharged after getting a dose of oral levofloxacin with a prescription for 6 more days of therapy and follow up in [address] Murrell. Of note there was a concern for vasculitis when he was not healing, but no clear diagnosis. CRP/ESR were moderately elevated and will be followed. PAD was also on his list, thought ABIs on 11/04 were relatively reassuring. He was evaluated by physical therapy who recommended home health PT as well as home health RN for wound care. He was given #10 tramadol 50mg for as needed use in the management of pain as this was helping while he was here. Recommendations for Follow Up Recommended tests to be ordered by follow up provider: BMP, CRP 1 week Home Meds and New Rx's Prescriptions: New acetaminophen 325 mg Tablet 650 mg PO Q4H PRN PRNQty: 50 0RF tramadol 50 mg Tablet 50 mg PO Q6H PRN PRNQty: 10 0RF levofloxacin 750 mg tablet 750 mg PO DAILY Qty: 6 0RF Rx Instructions: stop other antibiotics Continued ibuprofen 800 mg tablet 800 mg PO Q8H ketoconazole 2 % cream See Rx Instructions topical DAILY Qty: 30 11RF Rx Instructions: 1 gram topically daily; Apply total of 1gram to all toenails daily. Apply separately from the Urea cream. amlodipine 10 mg tablet 10 mg PO DAILY aspirin 81 mg tablet 81 mg PO DAILY lisinopril 40 mg tablet 40 mg PO DAILY omega 5-hwg-rti-fish oil [Fish Oil] 60-90-500 mg capsule 1 cap PO DAILY terbinafine HCl 250 mg tablet 250 mg PO DAILY 30 Days Qty: 30 0RF Dakin's Solution 0.125 % solution 1 applic topical DAILY Qty: 473 0RF mv,Ca,ysi-nruy-OS-lycopene [Men's Daily Multivitamin] 1 tab PO DAILY Discontinued ciprofloxacin HCl 500 mg tablet 500 mg PO BID Qty: 14 0RF amoxicillin-pot clavulanate [Augmentin] 500-125 mg tablet 1 tab PO BID 7 Days Qty: 14 0RF Discharge Instructions Additional Instructions: Take 6 more days of the antibiotic Levofloxacin staring Sunday 12/10. Follow up with Dr. Murrell in podiatry clinic on 12/16 Avoid smoking and keep the foot elevated, and continue compression to help healing Stand Alone Forms: Nursing Discharge Form Referrals: Moon Murrell DPM [[facility] STAFF PHYSICIAN, Podiatry] - 12/16/24 1:45 pm Activity:: Activity as Tolerated Equipment/Supplies:: No Equipment Needed Diet:: As Tolerated Discharge Orders Discharge Orders: Discharge Order (Routine); Ordered 12/09/24 Ordered By: Esequiel Francois DS: Summary Time Spent with Patient providing and/or coordinating discharge services: Greater than 30 minutes Status at Discharge Functional status at discharge: uses cane/walker Overall status at discharge: patient is progressing back to baseline Mental Status: mental status grossly normal Speech and Movement: speech and movement normal Mood: congruent mood Affect: normal affect Exam Narrative Exam Narrative: General: This is a pleasant man in no distress CV: RRR Resp: CTAB Abd: soft, NTND Skin: Left ankles and foot wrapped, toes mobile, hyperpigmented, cap refill <2 seconds Psych Mental Status: mental status grossly normal Speech and Movement: speech and movement normal Mood: congruent mood Affect: normal affect DS: Data Vitals/I&O Vitals and I&O: Vital Signs Temperature 36.8 C 12/09/24 07:25 Temperature Source Temporal Artery Scan 12/09/24 07:25 Pulse 80 12/09/24 07:25 Pulse Rhythm Regular 12/04/24 16:20 Pulse 75 12/04/24 15:27 Respiratory Rate 16 12/09/24 07:25 Respiratory Effort Normal, Non-Labored 12/04/24 16:20 Respiratory Depth Normal 12/04/24 16:20 Respiratory Pattern Normal 12/04/24 16:20 Blood Pressure 98/65 L 12/09/24 07:25 Blood Pressure Mean 76 12/09/24 07:25 Blood Pressure Position Sitting 12/04/24 10:26 Pulse Oximetry 97 12/09/24 07:25 Respiratory End-tidal CO2 20 12/04/24 15:27 Oxygen Delivery Method Room Air 12/09/24 07:25 Oxygen Flow Rate 0 12/09/24 07:25 Pain Level 7 12/09/24 09:51 Comment PT sleeping. 12/05/24 23:23 Intake & Output 12/08/24 12/08/24 12/09/24 11:59 23:59 11:59 Intake Total 310 / 988.667 678.667 / 988.667 0 / 0 Output Total 1000 / 1000 300 / 300 Balance -690 / -11.333 678.667 / -11.333 -300 / -300 Weight 99.79 kg Intake: IV 310 / 988.667 678.667 / 988.667 0 / 0 Output: Urine 1000 / 1000 300 / 300 Other: Urine Color Pale Yellow Yellow Urine Appearance Clear Clear Clear Urine Odor Normal Normal Normal Comment pt voids to toilet. pt voids in urinal. Stool Size Moderate Stool Characteristics Soft Black Data Completed and Pending Labs on day of discharge: Labs from last 24 hours 12/09/24 10:07 ESR 40 H C-Reactive Protein 2.48 H Preliminary micro results at discharge 12/04/24 14:28 Foot - Left Surgical Culture - Preliminary 12/04/24 11:15 Blood Blood Culture - Preliminary NO GROWTH 96 HOURS 12/04/24 11:03 Blood Blood Culture - Preliminary NO GROWTH 96 HOURS 12/04/24 14:28 Foot - Left Anaerobic Culture - Preliminary PFSH All Active Problems Cellulitis of foot, left (Acute) Vasculitis (Acute) Tinea pedis (Acute) Coronary arteriosclerosis (Acute) Hyponatremia (Acute) due to alcohol abuse 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 Pulmonary emphysema (Acute) declines PFTs Harmful pattern of use of alcohol (Acute) PVD (peripheral vascular disease) (Chronic) Hypertension (Chronic) Onychomycosis (Acute) Onychogryphosis (Acute) Other specified peripheral vascular diseases (Acute) Venous (peripheral) insufficiency (Acute) Stasis dermatitis (Acute) Cellulitis (Acute) Tobacco user (Acute) Medical History Toe fracture, right 1st digit Social History Smoking/Tobacco Use Status: Current every day Tobacco Type: cigarettes Smoking packs per day: 1 Smoking cigarettes per day: 20.0 Tobacco: How many years used: 45 Smoking risk assessment performed?: Yes Alcohol Intake: current Drug use: Never Housing: house Time Spent with Patient Time Spent with Patient: <45 minutes Time was spent: preparing to see the patient(eg.review tests), obtaining and/or reviewing separately otained hiistory, ordering medications,tests, procedures, referring, communicating with other health medicare interviewer, indepentently interpreting results, counseling the patient and care coordination
--- NOTE | 2024-12-09 11:50 | PDOC.HHF2F_ITS ---
Date of service: 12/09/24 Time of Service: 11:50 Home Health Referral Home Health Orders Clinical synopsis of why skilled professionals are needed: Rk Barlow is a 64 year old man with PMH includes CAD, COPD, venous insufficiency, and tobacco dependence who presented December 04, sent in from podiatry clinic for worsening left foot/ankle wounds. He had failed multiple amox/clav and cipro orally. He was started on pip/tazo and vancomycin. OR debridement was the initial plan per Dr. Murrell, but the wound was healing so he did not need this. Blood and wound cultures were negative from this admission, with 12/02 wound cultures growing pansensitive pseudomonas and group G strep. He was discharged after getting a dose of oral levofloxacin with a prescription for 6 more days of therapy and follow up in [address] Murrell. Of note there was a concern for vasculitis when he was not healing, but no clear diagnosis. CRP/ESR were moderately elevated and will be followed. PAD was also on his list, thought ABIs on 11/04 were relatively reassuring. He was evaluated by physical therapy who recommended home health PT as well as home health RN for wound care. He was given #10 tramadol 50mg for as needed use in the management of pain as this was helping while he was here. Medical diagnosis necessitation home health referral: cellulitis of foot, venous stasis wound Registered Nurse: Check all that apply Instruct on new or changed medication(s)/assess compliance: Ordered Assess for exacerbation of medical condition, instruct patient/caregivers on signs and symptoms to report for early detection: Ordered Assess wound for signs and symptoms of infection, instruct on wound care and/or provide skilled wound care consisting of: left foot cellulitis, venous stasis Physical Therapist: Check all that apply Increase strength & endurance for safe mobility at home: Ordered To design/establish home maintenance program: Ordered Home safety evaluation and teaching/gait training including stair management (if applicable): Ordered Home Bound Status Requires the aid of supportive device (check all that apply): Walker Describe why leaving home would require a considerable and taxing effort: Requires frequent rest periods Encounter Date and Reason: I certify that a FTF encounter for this patient was performed on December 09, 2024 and that such encounter was related to the primary reason the patient requires home health services. The encounter was conducted in the following manner: * By me as the certifying physician, AUTOMOTIVE QUALITY ENGINEER, PA or * By an inpatient physician, AUTOMOTIVE QUALITY ENGINEER or PA during an inpatient stay who communicated findings to me, Certification And Authentication I certify that I composed the above information based on my clinical judgment relating to this patient's medical condition and, if applicable, clinical findings communicated to me by the NPP or inpatient physician who performed the FTF encounter. Name of Provider that will be monitoring home health services: Treasure Ocampo
[2024-12-09] MEDS: levoFLOXacin 250 MG TAB 750 MG PO (12:15)
[2024-12-09] MEDS: Normal Saline Flush 10 ML SYR IVP (12:16)
== END 2024-12-09 15:16 | disposition home health service (06) | DRG 571 ==
LOC: ER 11:38 → SUR 15:05 → MS 15:26 → SUR 12-07 07:55 → ER 12-07 07:55 → MS 12-07 07:55
PROVIDERS: Podiatrist; Admitting Provider Family Medicine; Emergency Provider Emergency Medicine; PCP Physician Assistant; Responsible Provider Family Medicine; Visit Provider Family Medicine
PROC: 0JBR0ZZ Excision of Left Foot Subcutaneous Tissue and Fascia, Open Approach (ICD-10-PCS; CPT 11042; principal; 2024-12-04 13:00)
DX: L03.116 Cellulitis of left lower limb (principal); L97.328 Non-pressure chronic ulcer of left ankle with other specified severity; I73.9 Peripheral vascular disease, unspecified; I10 Essential (primary) hypertension; I25.10 Atherosclerotic heart disease of native coronary artery without angina pectoris; I87.2 Venous insufficiency (chronic) (peripheral); J44.9 Chronic obstructive pulmonary disease, unspecified; F17.210 Nicotine dependence, cigarettes, uncomplicated; B35.1 Tinea unguium; R21 Rash and other nonspecific skin eruption; I77.6 Arteritis, unspecified; I83.023 Varicose veins of left lower extremity with ulcer of ankle; B35.3 Tinea pedis
CPT/HCPCS: 11042; 11102; 00123; 36415; 80048; 80053; 85652; 87040; 96361; 96365; 96366; 96375; 97110; 97162; 97530; 99024; 99223; 99232; 99233; 99285; 73610; 73630; 80202; 81003; 82595; 83516; 83605; 83735; 84484; 85014; 85018; 85025; 85610; 86038; 86140; 86160; 86431; 87070; 87075; 87205; 88305; 88312; 99222; 99231; 99238; J0131; J1171; J1805; J1885; J2003; J2250; J2371; J2405; J2543; J2704; J3010; J3373

== ENCOUNTER → 2024-12-17 13:52 | Outpatient (BNVA) | payer MEDICARE, SELFPAY | PROVIDERS: PCP Physician Assistant; Referring Provider Physician Assistant; Visit Provider Podiatrist | DX: L03.115 Cellulitis of right lower limb (principal); L03.116 Cellulitis of left lower limb; B35.3 Tinea pedis; I73.89 Other specified peripheral vascular diseases; I87.2 Venous insufficiency (chronic) (peripheral); I77.6 Arteritis, unspecified; L60.2 Onychogryphosis; Z72.0 Tobacco use; B35.1 Tinea unguium | CPT/HCPCS: 11042; 29581 ==

== ENCOUNTER → 2024-12-25 10:09 | Outpatient (BNVA) | payer MEDICARE, SELFPAY | PROVIDERS: PCP Physician Assistant; Referring Provider Physician Assistant; Visit Provider Podiatrist | DX: L03.116 Cellulitis of left lower limb (principal); I77.6 Arteritis, unspecified; I87.2 Venous insufficiency (chronic) (peripheral); L60.2 Onychogryphosis; B35.1 Tinea unguium; B35.3 Tinea pedis; Z72.0 Tobacco use | CPT/HCPCS: 29581 ==

== ENCOUNTER → 2025-01-08 11:05 | Outpatient (BNVA) | payer MEDICARE, SELFPAY | PROVIDERS: PCP Physician Assistant; Referring Provider Physician Assistant; Visit Provider Podiatrist | DX: I87.2 Venous insufficiency (chronic) (peripheral) (principal); I73.89 Other specified peripheral vascular diseases; I77.6 Arteritis, unspecified; L03.116 Cellulitis of left lower limb; B35.1 Tinea unguium; B35.3 Tinea pedis; L60.2 Onychogryphosis; Z72.0 Tobacco use | CPT/HCPCS: 99215 ==

== ENCOUNTER → 2025-01-14 14:14 | Outpatient (BNVA) | payer MEDICARE, SELFPAY | PROVIDERS: PCP Physician Assistant; Referring Provider Physician Assistant; Visit Provider Podiatrist | DX: L03.116 Cellulitis of left lower limb (principal); L60.2 Onychogryphosis; B35.1 Tinea unguium; B35.3 Tinea pedis; I77.6 Arteritis, unspecified; I73.89 Other specified peripheral vascular diseases; Z72.0 Tobacco use; M05.20 Rheumatoid vasculitis with rheumatoid arthritis of unspecified site | CPT/HCPCS: 99214 ==

== ENCOUNTER → 2025-02-09 11:16 | Outpatient (BNVA) | payer MEDICARE, SELFPAY | PROVIDERS: PCP Physician Assistant; Referring Provider Physician Assistant; Visit Provider Podiatrist | DX: L60.2 Onychogryphosis (principal); B35.3 Tinea pedis; B35.1 Tinea unguium; L03.116 Cellulitis of left lower limb; I77.6 Arteritis, unspecified; I87.2 Venous insufficiency (chronic) (peripheral); M05.20 Rheumatoid vasculitis with rheumatoid arthritis of unspecified site; Z72.0 Tobacco use | CPT/HCPCS: 11755 ==